=== PATIENT | male | born 1945 | race Caucasian/White ===

== ENCOUNTER 2024-03-22 07:13 | Day surgery (SDC) | payer MEDICARE, SELFPAY ==
[2024-03-22] VITALS (9 sets, daily range): BP systolic 111–167; BP diastolic 76–98; BMI 28.7
[2024-03-22 07:40] LABS: Hematocrit 44.3 % (39.0-52.0); Hemoglobin 14.5 g/dL (13.0-18.0); Mean Corp Hgb Conc. 32.7 g/dL (33.0-37.0); Mean Corpuscular Hgb 30.7 pg (27.0-31.0); Mean Corpuscular Volume 93.7 fL (80.0-94.0); Mean Platelet Volume 11.9 fL (7.4-10.4); Platelet Count 163 10^3/uL (130-400); Red Blood Cell Count 4.73 10^6/uL (4.70-6.10); Red Cell Dist. Width 12.9 % (11.5-14.5)
[2024-03-22 07:51] LABS: ALT (SGPT) 29 U/L (0-50); AST (SGOT) 43 U/L (17-59); Albumin 4.1 g/dl (3.5-5.0); Alkaline Phosphatase 74 U/L (38-126); Blood Urea Nitrogen 19 mg/dl (9-20); Calcium 9.4 mg/dl (8.4-10.2); Carbon Dioxide 32 mmol/L (22-30); Chloride 105 mmol/L (98-107); Glucose 104 mg/dl (70-99); Potassium 4.8 mmol/L (3.5-5.1); Sodium 145 mmol/L (135-145); Total Bilirubin 0.9 mg/dl (0.2-1.3); Total Protein 6.4 g/dl (6.3-8.2); eGFR > 60.00
--- NOTE | 2024-03-22 10:54 | ITS.CL.ANGIO ---
Chief Development Officer - Angioplasty
Angioplasty
Procedure Report:
CARDIAC CATHETERIZATION REPORT
Date of Procedure: 03/22/2024
Referring: Letha Schneider M.D.
Indication: Worsening shortness of breath, abnormal stress test.
PROCEDURE:
1. Right heart catheterization.
2. Left heart catheterization.
3. Coronary angiography.
4. Successful IFR of the proximal/mid LAD.
5. Successful IVUS guided PCI of the proximal/mid LAD.
ACCESS:
6 Kenyan right radial artery.
5 Kenyan right antecubital vein.
CATHETERS:
1. 5 Kenyan balloon wedge.
2. 5 Kenyan JL 3.5.
3. 5 Kenyan JR4.
4. 6 Kenyan EBU 3.5 guiding catheter.
HEMODYNAMIC DATA
Weight (kg): 96.0
AO (s/d/x mmHg): 148/74/104
LV (s/x mmHg): 150/17
PCWP (a/v/x mmHg): Not obtained due to insufficient catheter length.
PA (s/d/x mmHg): 54/30/38
RV (s/x mmHg): 54/15
RA (a/v/x mmHg): 20/18/15
SVC SvO2 (%): 61.8
PA SvO2 (%): 67.9
SaO2 (%): 94.7
Hbg (g/dL): 14.2
CO (L/min): 4.73
CI (L/min/m2): 2.19
TPG (mmHg): 21
PVR (Dolan Units): 4.44
SVR (dynes*seconds*cm^-5): 1505
AVO2 Diff (Volume %): 5.18
AV gradient (x, mmHg): None.
AV area (cm2): Normal.
LEFT VENTRICULOGRAPHY: Not performed.
CORONARY ANGIOGRAPHY
Dominance: Right.
Left Main: Normal size, bifurcating vessel. There is no coronary artery disease.
LAD: Normal size vessel giving rise to 2 significant diagonals. There is a calcified, 50-60% lesion in the mid vessel, and the segment spanning the origins of D1 and D2.
Ramus: Congenitally absent.
Circumflex: Normal size, nondominant vessel giving rise to 1 significant marginal. There is a 40% lesion in the proximal third of OM1.
RCA: Normal size, dominant vessel. The artery is chronically totally occluded in its midsection. The RPDA and Posterolateral arcade are supplied by collaterals from the LAD and circumflex systems.
INTERVENTIONS
1. Successful IFR of the 50-60% mid LAD lesion, demonstrating occlusive disease (IFR = 0.88).
2. Successful IVUS guided PCI of the mid LAD lesion (Xience Skypoint 3.5 x 23 CHANDLER, postdilated with a 3.5 NC balloon throughout and 3.75 NC balloon in the proximal margin) with reduction in stenosis to 0%, maintaining JACQUELYN-3 flow.
Narrative:
Dr. Hawkins was present throughout the entirety of the case and assisted me with various diagnostic portions of the procedure.
The decision was made to perform physiologic testing. The diagnostic catheter was removed over a wire and exchanged for a(n) 6 Kenyan EBU 3.5 guiding catheter. The guiding catheter was advanced into the ascending aorta and seated in the left main
coronary artery. Additional heparin was given to obtain an ACT greater than 250 seconds. An iFR wire was zeroed outside of the body, then inserted into the guiding sheath. The wire was advanced and the transducer was normalized just outside of the
guiding catheter tip. The wire was advanced into the distal LAD, beyond the 50-60% mid LAD lesion. Three iFR measurements were taken. The lesion was determined to be occlusive (0.88).
The decision was made to proceed with percutaneous coronary intervention. Additional heparin was given and a Power Turn Flex wire was advanced into the distal LAD. The occlusive, densely calcified 50-60% mid LAD lesion was predilated with a 2.0 x 12
semi-compliant balloon to 12 ana maria. The semi-compliant balloon was removed and a Xience Skypoint 3.5 x 23 drug-eluting stent was advanced. The stent was deployed at 12 atmospheres. The stent balloon was removed. A 3.5 x 20 noncompliant balloon was
advanced into the stent and the stent was postdilated to 14 atmospheres. Angiography showed good stent expansion of the distal stent with some underexpansion in the proximal margin. The decision was made to post dilate the proximal margin of the
stent more aggressively. A 3.75 x 12 NC balloon was advanced. The proximal margin of the stent was postdilated to 18 ana maria, at which point the lesion yielded and a full balloon expansion was observed. The noncompliant balloon was withdrawn.
The decision was made to perform intracoronary imaging. An IVUS catheter was advanced through the guiding catheter and into the ostium of the artery. Ring down was performed once the imaging crystal was no longer inside of the guiding catheter. The
IVUS catheter was advanced into the mid LAD, beyond the stent. Intravascular ultrasound was performed in a retrograde fashion using a slow pullback. Intracoronary imaging demonstrated good stent apposition and expansion throughout the entire stented
segment. There was no evidence of dissection or vessel compromise.
The IVUS catheter was withdrawn. Angiography was performed in orthogonal views, confirming good stent expansion and an excellent angiographic result. The coronary wire was withdrawn and the guide was disengaged from the artery. The catheter was
removed over a standard J-wire.
Closure Device: Vascular band for the right radial artery, manual pressure for the right antecubital vein.
Radiation dose (mGy): 664.74
DAP (cm2.Gy): 57.8943
Fluoroscopy time (minutes): 15.5
Sedation time (minutes): 41
CONCLUSIONS:
1. 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
the mid LAD, in this segment between the origins of D1 and D2 (IFR = 0.88) status post successful IVUS guided PCI (Xience Skypoint 3.5 x 23 CHANDLER, postdilated with a 3.5 NC balloon throughout and a 3.75 NC balloon in the proximal margin) with
reduction in stenosis to 0%, maintaining JACQUELYN-3 flow.
2. Mildly elevated filling pressures (LVEDP = 17 mmHg at 96.0 kg).
3. 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
RECOMMENDATIONS:
1. Expectant management after cardiac catheterization via right radial/right antecubital approach.
2. Limited weight bearing on the right wrist for one week.
3. Dual antiplatelet therapy with aspirin and clopidogrel for at least 12 months, followed by aspirin indefinitely.
4. Aggressive secondary prevention including high-dose, high potency statin.
5. Guideline directed medical therapy as hemodynamics will allow.
6. Follow-up with cardiology as well as pulmonology given his COPD and pulmonary hypertension.
7. Referral to cardiac rehab.
Copy to: Letha Schneider M.D., CATALINA Knutson
Isaias Florence DO, FACC, FACP
[2024-03-22 12:10] LABS: ACT-LR - POC > 397 Seconds (116-155)
--- NOTE | 2024-03-22 16:13 | W.PN.UPDATE ---
Update Note
Progress Note Update
Pt seen post LAD PCI CHANDLER. Radial cath site without ht, trace bleeding but successfully managed with manual compression. Post EKG NSR 70s, no acute changes. Pt understands importance of uninterrupted DAPT w/asa, plavix. Cardiac rehab consulted.
Followup at [facility] arranged. Home later today if cath site/tele remain stable.
== END 2024-03-22 15:46 | disposition home or self-care (01) ==
LOC: CATH 07:13
PROVIDERS: ATTENDING PHYSICIAN Internal Medicine Cardiovascular Disease; FAMILY PHYSICIAN Nurse Practitioner Family; OTHER PHYSICIAN Internal Medicine Cardiovascular Disease
DX: I25.10 Atherosclerotic heart disease of native coronary artery without angina pectoris (principal); R94.39 Abnormal result of other cardiovascular function study; R06.02 Shortness of breath; I25.82 Chronic total occlusion of coronary artery; I27.20 Pulmonary hypertension, unspecified; J44.9 Chronic obstructive pulmonary disease, unspecified
CPT/HCPCS: 92978; 80053; 85027; 85347; 93005; 93460; 93799; C1725; C1753; C1769; C1874; C1894; C9600; Q9967

== ENCOUNTER → 2024-10-07 10:31 | Outpatient (REF) | payer OTHER, SELFPAY | LOC: HWRAD 10:31 | PROVIDERS: ATTENDING PHYSICIAN Internal Medicine Critical Care Medicine | DX: J18.9 Pneumonia, unspecified organism (principal) | CPT/HCPCS: 71046 ==

== ENCOUNTER → 2024-12-28 06:55 | Outpatient (REF) | payer OTHER, SELFPAY ==
[2024-12-28 07:20] VITALS: BP 190/84; BP_SYST 72
[2024-12-28 07:45] VITALS: BP 161/80; BP_SYST 59
[2024-12-28 08:08] VITALS: BP 161/80
[2024-12-28 08:21] LABS: Body Fluid pH 7.45
[2024-12-28 08:24] LABS: Body Fluid Polymorphonuclear 1.1 %; Body Fluid WBC 3741 /CUMM
[2024-12-28 08:25] LABS: Body Fluid Mononuclear 98.9 %
[2024-12-28 08:32] LABS: Body Fluid Glucose 89 mg/dl; Body Fluid LDH 210 U/L; Body Fluid Protein 3.5 g/dl
[2024-12-28 09:06] LABS: Body Fluid Second Tech EM
== END ==
LOC: RADI 06:55
PROVIDERS: ATTENDING PHYSICIAN Internal Medicine Critical Care Medicine
DX: J90 Pleural effusion, not elsewhere classified (principal)
CPT/HCPCS: 88305; 32555; 71045; 82945; 83615; 83986; 84157; 87015; 87070; 87102; 87116; 87205; 87206; 88112; 88341; 88342; 89051

== ENCOUNTER 2025-06-17 13:33 | Inpatient (IN) | payer OTHER, SELFPAY ==
[2025-06-17] VITALS (7 sets, daily range): BP systolic 90–149; BP diastolic 68–81; BMI 26.9
[2025-06-17] MEDS: DECADRON 10 MG IV (11:41)
[2025-06-17] MEDS: DUONEB 3 ML INH ×3 (11:42→19:17)
[2025-06-17 11:53] LABS: Hematocrit 35.4 % (39.0-52.0); Hemoglobin 11.6 g/dL (13.0-18.0); Mean Corp Hgb Conc. 32.8 g/dL (33.0-37.0); Mean Corpuscular Volume 98.1 fL (80.0-94.0); Nucleated Red Blood Cells % 0 % (-); Platelet Count 176 10^3/uL (130-400); Red Cell Dist. Width 13.5 % (11.5-14.5)
--- NOTE | 2025-06-17 11:54 | ED.GENMED ---
History of Present Illness
General
Chief Complaint: Breathing Problem
Source: patient and spouse
Exam Limitations: none
Time Seen by Provider: 06/17/25 10:59
Nursing documentation reviewed up to this point in time: agreed with
History of Present Illness
History of Present Illness:
79-year-old male emphysema no longer smoking been short of breath for at least a month, worsened while on a trip to [place] on a cruise apparently exposed to folks with influenza has been coughing a lot no documented fever
He has had stents placed with no improvement of his respiratory symptoms, so what sounds like an empyema with thoracentesis with legionnaires
Past History
Past History
ED Past Medical History: COPD and Other (Legionnaire's pneumonia ); Negative Hypercholesterolemia or IDDM
ED Past Surgical History: Negative Cardiac
Social History
Tobacco: Former smoker
Alcohol: Occasional
Drug: None
Personal:
Living: with family
Employment: Employed
Family History
Family History: Negative Early CAD
Review of Systems
Review of Systems
All Other Systems: Not applicable
Constitutional: Reports fatigue; Denies fever
EENT: Reports no symptoms
Respiratory: Reports cough and trouble breathing
Cardiac: Reports no symptoms
ABD/GI: Reports no symptoms
: Reports no symptoms
Phy Exam
Physical Exam
Physical Exam:
Physical Exam
General: 79-year-old male nontoxic mild distress
Neck: No jaundice
Heart: s1/s2 regular rate and rhythm, no murmur. equal radial pulses.
Lungs: Crackles right greater than left with faint wheeze
Abdomen: normal bowel sounds. not tender. no CVAT
Neuro: alert and oriented. no focal neurological deficits
Skin: no rash
Psychiatric: well kept. interactive and cooperative
Extremities: Nonpitting edema some venous stasis change
Scores
Heart Failure Risk
Heart Failure Risk Score: Yes
History of Stroke or TIA: No
History of intubation for respiratory distress: No
Heart rate on ED arrival >/= 110: No
SaO2 <90% on arrival on room air: No
HR >/=110 during 3min walk test (or too ill to perform test): Yes
ECG has acute ischemic changes: No
Urea >/=12mmol/L (BUN 33.6mg/dL): No
Serum CO2>/=35mmol/L: No
Troponin I or T elevated to OK Level (0.4mg/dL): No
NT-proBNP >/=5,000ng/L (5,000pg/ml): No
HF Risk Score: 2
Admission Status: MEDIUM RISK 9.2% Consider observation or discharge to home with homecare & f/u visit to PCP/Tipple Tender, or SNF for treatment
Course
Orders/Labs/Results
Orders:
Orders
06/17/25 11:28
Cardiac Monitoring- Treatment ONCE
IV Insert/Care/Rem.- Treatment PRN
Dexamethasone Sod Phosphate [Decadron] 10 mg IV NOW STA
Ipratropium/Albuterol Sulfate [Duoneb] 3 ml INH R NOW STA
06/17/25 11:29
Electrocardiogram (*1) Stat
Reason for Study: Other
Other Reason for Exam: pneumonia
EKG- Treatment ONCE
CR Chest - 2 Views Urgent
Comment:
Reason For Exam: soub cough
06/17/25 11:37
Comprehensive Metabolic Panel Urgent
06/17/25 11:38
Complete Blood Count/With Diff Urgent
NT-proBNP Urgent
Troponin I Urgent
06/17/25 12:58
COVID-19 Antigen Urgent
Source: Nasal Swab
Influenza A+B Rapid Molecular Urgent
LAKSHMI Source: Nasal Swab
Specimen Description:
06/17/25 13:18
Admit/Transfer Patient As Directed
Co-Sign Provider:
Level of Care: Inpatient admission
Assign to:: Telemetry
Physician / Group: cristobal
Diagnosis: right pleural effusion
Reason for Telemetry: Pulmonary Edema
Date to Stop Telemetry: 06/20/25
Time to Stop Telemetry: 11:00
Reason for Hospitalization: right pleural effusion
Expected length of stay greater than two midnights?: Yes
ELOS- Estimated Length of Stay in days: 2
I certify the patient meets the requirements for IP care: Yes
Code Status As Directed
Resuscitation Status: Full Code
PRN Pain Medication Management As Directed
May give lesser potent ordered pain med per pt: Yes
preference::
Protocol:: Medication orders for pain may be administered in a
manner that supports deferring to patient preference
when the pt is:
- Requesting an ordered lesser potent pain medication.
Least to most potent pain medications are defined
as: acetaminophen < NSAID < tramadol < opioids
(morphine, oxycodone, hydromorphone).
- Requesting a lesser dose of the same medication IF
ORDERED.
- Requesting a less intrusive route of administration
if both routes are prescribed by the provider (PO <
IV).
06/17/25 13:25
PRN Pain Medication Management As Directed
May give lesser potent ordered pain med per pt: Yes
preference::
Protocol:: Medication orders for pain may be administered in a
manner that supports deferring to patient preference
when the pt is:
- Requesting an ordered lesser potent pain medication.
Least to most potent pain medications are defined
as: acetaminophen < NSAID < tramadol < opioids
(morphine, oxycodone, hydromorphone).
- Requesting a lesser dose of the same medication IF
ORDERED.
- Requesting a less intrusive route of administration
if both routes are prescribed by the provider (PO <
IV).
06/17/25 13:26
Procalcitonin Routine
If negative, will antibiotics be d/c'd or not started: Yes
Does the patient have renal or hepatic impairment?: No
Any recent (w/in 48 hrs) physiologic stress (CPR, rhabdo): No
Legionella Urinary Antigen Urgent
LAKSHMI Source: Urine
Specimen Description:
Strep pneumoniae Antigen Urgent
LAKSHMI Source: Urine
Specimen Description:
06/17/25 13:27
Furosemide [Lasix] 40 mg IV NOW STA
06/20/25 11:00
DC Protocol for Telemetry ONCE
Abnormal Lab Results
06/17/25 06/17/25
11:37 11:38
WBC 4.4 L 10^3/uL
(4.8-10.8)
RBC 3.61 L 10^6/uL
(4.70-6.10)
Hgb 11.6 L g/dL
(13.0-18.0)
Hct 35.4 L %
(39.0-52.0)
MCV 98.1 H fL
(80.0-94.0)
MCH 32.1 H pg
(27.0-31.0)
MCHC 32.8 L g/dL
(33.0-37.0)
MPV 11.1 H fL
(7.4-10.4)
Absolute Lymphs (auto) 0.8 L 10^3/uL
(1.2-3.4)
Lymphocytes % 17.6 L %
(20.5-51.1)
Monocytes % 10.1 H %
(1.7-9.3)
BUN 21 H mg/dl
(9-20)
Troponin I 0.038 H* ng/ml
Total Protein 6.2 L g/dl
(6.3-8.2)
06/17/25 11:38
06/17/25 11:37
Vital Signs
Initial and Last Documented VS:
Initial Vital Signs
Temp Pulse Resp BP Pulse Ox
98.0 F 70 20 144/74 96
06/17/25 10:36 06/17/25 10:36 06/17/25 10:36 06/17/25 10:36 06/17/25 10:36
Last Documented Vital Signs
Temp Pulse Resp BP Pulse Ox
98.0 F 70 20 144/74 100
06/17/25 10:36 06/17/25 10:36 06/17/25 10:36 06/17/25 10:36 06/17/25 12:15
MDM/Problems Addressed
Differential Diagnosis Includes:
COPD bronchitis heart failure pneumonia pleural effusions less likely PE or ACS
MDM/Problems Addressed:
Shortness of breath
Chronic conditions affecting care: COPD
Acute Exacerbation and/or Progression of Chronic Illness: COPD
*Radiology
Radiology exam reviewed: preliminary read by ED provider and radiology read reviewed
*Pulse Oximetry
SaO2: 96
Oxygen Mode of Delivery: Room air
Patient hypoxic: no
*EKG
Interpreted by ED Provider?: Yes
Interpretation: normal
Heart Rate: 78
Rate: normal
Rhythm: sinus
Ischemia: non-specific ST changes
*Sample Processor Interpretation
Rate: normal
Interpretation: normal
Heart Rate: 78
Rhythm: sinus
*Critical Care Note
Total Time (30-74mins, 75-104mins- exclusive of procedures): Not Applicable
Update Note
Update Note:
1 PM update labs noted chest x-ray
Patient proBNP elevated states he had an echo the past year or so was on diuretic because renal failure renal insufficiency not on chronic diuretics, has been exposed to people with the flu, this point is not clear if he needs diuretics,
thoracentesis, antibiotics or combination will admit, consult stock driver,
ED Attending Note
-
Portions of this chart may have been created with voice recognition software.� Occasional wrong word or��sound alike� substitutions may have occurred due to the inherent limitations of voice recognition software.
Discharge Plan
Departure
Patient Disposition: Admit
Date of Disposition: 06/17/25
Time of Disposition: 13:06
Admit to: Med/Surg
Presentation/result/management discussed w/ accepting MD/DO: Hospitalist
Patient with high blood pressure during this ER visit?: No
Covid-19: Not Applicable
Discharge Problem:
Pleural effusion
Prescriptions:
No Action
lisinopril [Zestril] 20 MG tablet
20 mg PO DAILY
aspirin 81 MG tablet,delayed release (DR/EC)
81 mg PO DAILY
PreserVision AREDS 4,296 mcg-226 mg-90 mg Capsule
1 cap PO BID
rosuvastatin 20 mg Tablet
20 mg PO QPM
acetaminophen [Tylenol Ex Str Arthritis Pain] 500 mg Tablet
500 mg PO Q4HPRN PRN (Reason: mild pain)
tamsulosin 0.4 mg Capsule
0.8 mg PO QPM
calcium carbonate [Tums 500] 500 mg calcium (1,250 mg) Tablet,Chewable
500 mg PO DAILY PRN (Reason: indigestion)
Sleep Aid (doxylamine) 25 mg Tablet
25 mg PO HS
albuterol sulfate [ProAir HFA] 90 mcg/actuation Hfa Aerosol Inhaler
1 puff INHALATION DAILY PRN (Reason: shortness of breath)
timolol maleate 0.5 % Drops
1 drp OPHTHALMIC (EYE) Q12H
cholecalciferol (vitamin D3) [Vitamin D3] 50 mcg (2,000 unit) Tablet
50 mcg PO DAILY
Breztri Aerosphere 160-9-4.8 mcg/actuation Hfa Aerosol Inhaler
2 inh INHALATION BID
Referrals:
Letha Schneider MD [Family Provider, Cardiology]
Interventions
Interventions:
*Risk Screen - Suicide Last Done: 06/17/25 10:36
*General Assessment Last Done: 06/17/25 11:15
*Neglect/Abuse Screening Last Done: 06/17/25 11:15
*ED COVID-19 Vaccine History Last Done: 06/17/25 11:15
*ED Influenza Vaccine History Last Done: 06/17/25 10:36
[facility] Fall Risk Assessment Tool Last Done: 06/17/25 11:15
ED- Cardiac Assessment Last Done: 06/17/25 11:15
ED- Pulmonary Assessment Last Done: 06/17/25 11:15
Discharge Date and Time
Print Language: ROMANIAN
[2025-06-17 12:06] LABS: ALT (SGPT) 18 U/L (0-50); AST (SGOT) 26 U/L (17-59); Albumin 3.6 g/dl (3.5-5.0); Alkaline Phosphatase 80 U/L (38-126); Blood Urea Nitrogen 21 mg/dl (9-20); Calcium 8.8 mg/dl (8.4-10.2); Carbon Dioxide 28 mmol/L (22-30); Chloride 102 mmol/L (98-107); Glucose 91 mg/dl (70-99); Potassium 4.2 mmol/L (3.5-5.1); Sodium 135 mmol/L (135-145); Total Protein 6.2 g/dl (6.3-8.2); eGFR 55.53
[2025-06-17 12:20] LABS: Troponin I 0.038 ng/ml
[2025-06-17] MEDS: LASIX 40 MG IV (13:27)
--- NOTE | 2025-06-17 13:34 | HPS.HSE ---
Family Physician
-
Family Physician: Letha Gallo MD
Chief Complaint
-
shortness of breath
History of Present Illness
79-year-old male past medical history of prior right pleural effusion status post drainage in October 2024, COPD, legionnaires pneumonia in 2007, hypertension, CAD status post stent, BPH, presenting for shortness of breath with exertion ongoing for at
least a month. Denies any chest pain.
He developed dry cough 3 days ago. He recently arrived on a trip from [place] during which multiple members in his libertarian tested positive for flu. Patient himself denies any sore throat, fevers or chills or bodyaches.
Patient has been feeling unsteady for the past few months. When he stands up he initially feels unsteady but denies dizziness or lightheadedness or vertigo. He has been using a cane. He denies any focal weakness, numbness or tingling, headache,
blurry vision.
He is a former smoker. He drinks 2-3 drinks per day of alcohol.
Medical History
Past Medical History
Past Medical History: Reports Other (prior right pleural effusion status post drainage in October 2024, COPD, legionnaires pneumonia in 2007, hypertension, CAD status post stent, BPH)
Past Surgical History: Reports None
Social History
Tobacco: Former Smoker
Alcohol: Daily
Drug: None
Family History
Family History: Not pertinent
Allergies / Home Medications
Allergies reflects when Allergies were last updated in [employer].
Home Medications with original date entered in [employer]
Allergy/Medication List:
Allergies
Allergy/AdvReac Type Severity Reaction Status Date / Time
No Known Allergies Allergy Verified 06/17/25 10:36
Home Medications
lisinopril 20 mg tablet (Zestril) 20 mg PO DAILY bp 03/30/09
aspirin 81 mg tablet,delayed release 81 mg PO DAILY blood thinner 08/31/09
rosuvastatin 20 mg tablet 20 mg PO QPM 03/22/24
vitamins A,C,T-sfbn-nqqbpp 4,296 mcg-226 mg-90 mg capsule (PreserVision AREDS) 1 cap PO BID dry eyes 03/22/24
acetaminophen 500 mg tablet 500 mg PO Q4HPRN PRN mild pain 06/17/25
albuterol sulfate 90 mcg/actuation aerosol inhaler 1 puff inhalation DAILY PRN shortness of breath 06/17/25
budesonide 160 mcg-glycopyr 9 mcg-formot 4.8 mcg/actuation HFA inhaler (Breztri Aerosphere) 2 inh inhalation BID 06/17/25
calcium carbonate 500 mg PO DAILY PRN indigestion 06/17/25
cholecalciferol (vitamin D3) 50 mcg (2,000 unit) tablet (Vitamin D3) 50 mcg PO DAILY 06/17/25
doxylamine succinate 25 mg tablet (Sleep Aid (doxylamine)) 25 mg PO HS 06/17/25
tamsulosin 0.4 mg capsule 0.8 mg PO QPM 06/17/25
timolol maleate 0.5 % eye drops 1 drp ophthalmic (eye) Q12H 06/17/25
Review of Systems
-
History Source: Patient
A 12 point ROS was completed and negative except as noted: Yes
Constitutional: Reports No Symptoms
EENT: Reports No Symptoms
Respiratory: Reports See HPI
Cardiac: Reports No Symptoms
Abdomen/GI: Reports No Symptoms
: Reports No Symptoms
Musculoskeletal: Reports No Symptoms
Skin: Reports No Symptoms
Neurological: Reports No Symptoms
Endocrine: Reports No Symptoms
Hematologic/Lymphatic: Reports No Symptoms
Psych: Reports No Symptoms
Physical Exam
Vital Signs
Vital Signs
Temp Pulse Resp BP Pulse Ox
98.0 F 70 20 144/74 100
06/17/25 10:36 06/17/25 10:36 06/17/25 10:36 06/17/25 10:36 06/17/25 12:15
Physical Exam
General: Well Developed, Well Nourished and No Apparent Distress
HEENT: NormoCephalic, Moist mucous membranes and Atraumatic
Respiratory: Clear
Cardiac: S1/S2 and Regular Rhythm; No Murmur or Rub
GI: Soft, Non Tender, Non Distended and Normal Bowel Sounds; No Organomegaly
Rectal: Deferred by Provider
Musculoskeletal: No Clubbing, No Cyanosis and No Edema
Skin: No Rash
Neuro: Nonfocal/grossly intact
Laboratory Results
-
06/17/25 11:38
06/17/25 11:37
Laboratory Results
Total Bilirubin 0.7 mg/dl (0.2-1.3) 06/17/25 11:37
AST 26 U/L (17-59) 06/17/25 11:37
ALT 18 U/L (0-50) 06/17/25 11:37
Alkaline Phosphatase 80 U/L (38-126) 06/17/25 11:37
Troponin I 0.038 ng/ml H* 06/17/25 11:38
Data Reviewed
-
Lab Data: Labs Reviewed by me
Old Records: Reviewed
Impression/Plan
-
IMPRESSION:
PLAN:
# Dyspnea secondary to recurrent right-sided pleural effusion concerning for acute CHF exacerbation versus possible pneumonia
-Given nebulizer and dexamethasone in ER but doubt COPD exacerbation
-Requiring 2 L oxygen
-Chest x-ray appears to show recurrent moderate right pleural effusion, small left pleural effusion, moderate subpleural airspace consolidation in the right lower lobe possibly atelectasis versus right lower lobe pneumonia, mild
interstitial/alveolar cardiogenic pulmonary edema
-Cardiac BNP 3500
- Previously underwent thoracentesis in December 2024
- IR consulted for thoracentesis
- Fluid studies to be sent
-Check strep antigen, Legionella
-Check Pro-Faizan
-Ceftriaxone/azithromycin
-Patient recently had echocardiogram 6 weeks ago at [facility] that was unremarkable
-Check I's and O's, daily weights
-40 IV Lasix once
- Pulmonary consulted
# Nonischemic myocardial injury
-Patient without chest pain
- Troponin 0.038
- EKG shows normal sinus rhythm
# New onset anemia/leukopenia
- Check iron studies, B12 and folate
# Ongoing unsteadiness
-Check orthostatics
- Check TSH, B12,
History of legionnaires pneumonia
COPD
- Continue albuterol
- Continue Breztri
CAD
- Continue aspirin, statin
Essential hypertension
- Continue lisinopril
BPH
- Continue tamsulosin
Full code
DVT prophylaxis�heparin
Regular diet
[2025-06-17 14:26] LABS: COVID-19 Antigen Negative (Negative)
[2025-06-17 14:39] LABS: Procalcitonin < 0.05 ng/ml (0.0-0.25)
--- NOTE | 2025-06-17 15:11 | CON.PUL ---
Consultation
Consultation Request
Date/Time Consultation Requested: 06/17/25-3 PM
Date/Time Consultation Performed: 06/17/25-3:30 PM
Requesting Provider: hospitalist
Performing Provider: Dr. Felix
Reason for Consultation: shortness of breath
Medical History
-
Chief Complaint: , shortness of breath
History of Present Illness:
77-year-old former smoking male with a history of right pleural effusion, status post drainage October 2024, COPD, legionnaire pneumonia, hypertension, CAD/stent, presented with increasing shortness of breath and dry cough-pulmonary consulted for
shortness of breath 06/17/25. Just returned from river cruise. Everyone was sick. He had inc sob, no cp no sputum and noted effusion sp drainage today alittle better. unsteady on feet asking for neuro eval. pos of flu.
Past Medical History
Past Medical History: None ( COPD. Former smoker. Right pleural effusion/thoracentesis October 2024. Legionnaire pneumonia. 2008. Hypertension. CAD/stent. BPH.)
Social History
Tobacco: Former Smoker
Alcohol: Daily
Drug: None
Personal:
Living: With Family
Occupational Exposures: No known asbestos exposure
Environmental Exposures: . No known tuberculosis exposure
Family History
Family History: Reviewed & Not Pertinent
Allergies / Home Medications
Allergies
Allergy/AdvReac Type Severity Reaction Status Date / Time
No Known Allergies Allergy Verified 06/17/25 10:36
Home Medications
�Medication �Instructions �Recorded �Confirmed �Last Taken �Type
lisinopril 20 mg tablet (Zestril) 20 mg PO DAILY bp 03/30/09 06/17/25 06/17/25 History
aspirin 81 mg tablet,delayed 81 mg PO DAILY blood thinner 08/31/09 06/17/25 06/17/25 History
release
rosuvastatin 20 mg tablet 20 mg PO QPM 03/22/24 06/17/25 06/16/25 History
vitamins A,C,Z-vjaj-iucmul 4,296 1 cap PO BID dry eyes 03/22/24 06/17/25 06/17/25 History
mcg-226 mg-90 mg capsule
(PreserVision AREDS)
acetaminophen 500 mg tablet 500 mg PO Q4HPRN PRN mild pain 06/17/25 06/17/25 06/16/25 History
albuterol sulfate 90 mcg/actuation 1 puff inhalation DAILY PRN 06/17/25 06/17/25 Unknown History
aerosol inhaler shortness of breath
budesonide 160 mcg-glycopyr 9 2 inh inhalation BID 06/17/25 06/17/25 06/17/25 History
mcg-formot 4.8 mcg/actuation HFA
inhaler (Breztri Aerosphere)
calcium carbonate 500 mg PO DAILY PRN indigestion 06/17/25 06/17/25 Unknown History
cholecalciferol (vitamin D3) 50 50 mcg PO DAILY 06/17/25 06/17/25 06/16/25 History
mcg (2,000 unit) tablet (Vitamin
D3)
doxylamine succinate 25 mg tablet 25 mg PO HS 06/17/25 06/17/25 06/16/25 History
(Sleep Aid (doxylamine))
tamsulosin 0.4 mg capsule 0.8 mg PO QPM 06/17/25 06/17/25 06/15/25 History
timolol maleate 0.5 % eye drops 1 drp ophthalmic (eye) Q12H 06/17/25 06/17/25 06/17/25 History
Review of Systems
-
Unable to Obtain full review of systems at this time due to: Other (Her HPI)
Vitals / Labs / Diagnostic Testing
Vital Signs
Temp Pulse Resp BP Pulse Ox
98.0 F 90 16 128/81 97
06/17/25 14:55 06/17/25 14:55 06/17/25 14:55 06/17/25 14:55 06/17/25 14:55
Lab Data
06/17/25 11:38
06/17/25 11:37
Microbiology
06/17/25 13:37 Nasal Swab Influenza Types A & B (REUBEN) - Final
Influenza A Positive, NAAT
Diagnostic Testing:
Physical Exam
-
Exam:
HEENT atraumatic normocephalic and anicteric. Heart was regular without murmur. Chest was clear without wheezes or crackles. Integument without rashes or icterus. Neurologic exam without weakness or numbness. Abdomen soft and nondistended.
The patient had no JVD, cyanosis, clubbing or edema.
Assessment
-
77-year-old former smoking male with a history of right pleural effusion, status post drainage October 2024, COPD, legionnaire pneumonia, hypertension, CAD/stent, presented with increasing shortness of breath and dry cough-pulmonary consulted for
shortness of breath 06/17/25.
Recurrent right pleural effusion.
Recent thoracentesis 12/2024
Thoracentesis 06/17/25
Pneumonia..
Influenza A- had vaccine this year
Mild CHF--preserved EF
Vkvxso-Aglmpzufvl-rvlymoyvnv 11.8
Leukopenia-WBC 4.4
Conditions present prior to admission:
COPD. .
Pulmonary nodule-9.3 mm left upper lobe-PET 12/2024-SUV 1.4-delayed 1.6
History of asbestos exposure
Former smoker.
Right pleural effusion/thoracentesis October 2024-suspected parapneumonic, cytology, negative
Legionnaire pneumonia 2007.
Hypertensi 1.4-delayed 1.69
BPH
Plan
Progressive respiratory decompensation, likely related to fluid reaccumulation, right greater than left pleural fluid.
Supplement oxygen as needed.
Inhalers-patient maintained on Breztri or Trelegy 100 -Hospital equipment would be fine.
Nebulizers as needed..
Decadron.
Aspiration precautions.
Incentive spirometry.
Diagnostic and therapeutic thoracentesis 06/17/25-pending
Diuresis as tolerated.
Monitor intake/output, weight, lower extremity edema and renal function.
Place electrolytes as needed.
Check cultures.
Empiric antibiotics.- Azithro and cetriaxone
Infulenza A pos
Isolation
Tamiflu
Follow radiographically.
Monitor leukopenia.
Monitor hemoglobin.
Transfuse if needed.
Recent Echo at [facility] reportedly looked 'good' - asked to get results
Asking for neuro eval - 'unsteady on feet'
DVT prophylaxis.
Nutrition
Early mobilization
Rev with RN and at the bedside
Patient last saw Dr. Engle 01/05/25 and canceled 06/17/25 as he was in the hospital
Studies:
Chest x-ray 06/17/25-moderate right and small left pleural effusion, moderate subpleural airspace consolidation right lower lobe, mild interstitial alveolar coverage extremity edema
CT chest 09/14/2024: Reviewed from CD-performed at [facility], Kana Garcia 10/07/2024 10:30:24 AM EDT >demonstratedmoderate centrilobular emphysema, upper lobe predominant.right lower lobe consolidation, with associated mild to
moderate pleural effusion. Mild left lower lobe bronchiolitis.Left upper lobe 7-8mm jay jay-fissural spiculated note. official report states that it is a slightly increased from 2023 from 6 mm.there is no mediastinal lymph nodes present and there is no
pericardial effusion..
PET/CT 12/29/2024, reviewed Kana Garcia 01/05/2025 12:25:28 PM EDT >1. 9.3 mm solid pulmonary nodule in the posterior apical segment of the left upper lobedemonstrating mild FDG uptake. Diagnostic possibilities are (1) a small infectious or
inflammatorynodule or (2) low-grade lung cancer.2. Mild bilateral upper lobe emphysema.3. Small right and minimal left pleural effusions.4. Mild amount of subpleural airspace opacity in the basilar right lower lobe (probably residualpneumonia or
inflammatory disease).5. Chronic urinary bladder outlet obstruction with severe urinary bladder wall thickening andmultiple large urinary bladder diverticula.
Pulmonary function testing ( 05/06/2024� ):FEV1: 1.71 L- 55%FVC:4.27 L at 99%FEV1/FVC ratio:40%T.84 L-92%RV:2.64 L-91%ERV:RV/TLC ratio:39%DLCO: 10.93-41%DLCO/VA: 56%
Echocardiogram 03/30/09-EF 55%, mild mitral regurgitation.
Cardiac catheterization 03/22/24-total occlusion mid RCA, successful PCI, mildly elevated filling pressures
Data Reviewed
-
PFT: Report reviewed by me
EKG: Report reviewed by me
Radiology: Image personally visualized and interpreted and Report reviewed by me
CT Scan: Report reviewed by me
Medical Tests (Nuc Med, Echo etc): Report reviewed by me
Labs: Labs reviewed by me
Old Records: Reviewed
Total Time Spent with Patient (in minutes): 65
--- NOTE | 2025-06-17 15:37 | EDCM ---
Reviewed chart and met with pt's bedside in ED. Pt currently in IR having pleural effusion drained.
Lives with his in 4th floor apartment with elevator access.
Independent in ADLs, personal care and ambulation at baseline. Has been using [facility] for past few weeks. No other DME.
Pt just returned from 12 day vacation last night, several people also tested positive for flu.
Confirms prescription coverage.
No hx VN or SNF
PCP:Pt does not currently have PCP, actuarial analyst is Letha Gallo. We discussed the importance of having PCP, said he sees actuarial analyst frequently so they thought he did not need a PCP anymore.
Pharmacy: [facility] [address]
Discharge disposition pending ongoing medical evaluation, CM will continue to follow for all discharge planning needs
[2025-06-17 16:32] LABS: Body Fluid Second Tech DW
[2025-06-17] MEDS: FLOMAX 0.8 MG PO (17:06)
[2025-06-17] MEDS: CRESTOR 20 MG PO (17:06)
[2025-06-17] MEDS: ZITHROMAX INFUSION 250 IV (17:07)
[2025-06-17] MEDS: STERILE WATER FOR INJECTION 10 ML IV (17:07)
[2025-06-17] MEDS: ROCEPHIN 1000 MG IV (17:07)
--- NOTE | 2025-06-17 17:33 | PTCARENOTE ---
patient arrived from IR via stretcher. Ambulated x 1 assist with cane from stretcher to bed--gait unsteady. Per , unsteady gait is a new finding since around one month ago-- is requesting patient be seen by neurology. Standing scale weight
obtained. VSS, on 2 L NC. Expiratory wheezes and anterior coarse breath sounds assessed upon auscultation. NSR on tele. Patient oriented to room. Patient educated on importance of utilizing his call crocker, to prevent falls, prior to exiting his
bed--patient agreeable. All patient needs met. Call crocker and personal belongings within reach.
[2025-06-17 17:37] LABS: Iron 42 ug/dl (49-181); LDH 177 U/L (120-246); Total Protein 6.4 g/dl (6.3-8.2)
[2025-06-17 17:46] LABS: Total Iron Binding Capacity 192 ug/dl (261-462)
[2025-06-17 18:11] LABS: Ferritin 585.0 ng/ml (17.9-464.0)
[2025-06-17 18:42] LABS: Folate 11.8 ng/ml (2.76-20); Vitamin B12 246 pg/ml (239-931)
[2025-06-17] MEDS: SYMBICORT 160/4.5 MCG INHALER 2 PUFF INH (19:18)
[2025-06-17] MEDS: TAMIFLU 30 MG PO (19:46)
[2025-06-17] MEDS: TIMOPTIC 0.5% OPHTHALMIC SOLUTION 1 DROP OPHTH (19:47)
[2025-06-17] MEDS: HEPARIN 5000 UNITS SC (19:47)
[2025-06-17] MEDS: OCUVITE SOFTGEL 1 CAP PO (19:47)
[2025-06-17] MEDS: BENADRYL 25 MG PO (21:06)
[2025-06-18] VITALS (8 sets, daily range): BP systolic 121–151; BP diastolic 65–85; PULSE 81–97; O2SAT 95; BMI 27.0
[2025-06-18] MEDS: SPIRIVA RESPIMAT 2.5 MCG 2 PUFF INH (07:24)
[2025-06-18] MEDS: DUONEB 3 ML INH ×4 (07:24→19:15)
[2025-06-18] MEDS: SYMBICORT 160/4.5 MCG INHALER 2 PUFF INH ×2 (07:24→19:15)
[2025-06-18 08:14] LABS: Hematocrit 34.7 % (39.0-52.0); Hemoglobin 11.3 g/dL (13.0-18.0); Mean Corp Hgb Conc. 32.6 g/dL (33.0-37.0); Mean Corpuscular Volume 96.7 fL (80.0-94.0); Nucleated Red Blood Cells % 0 % (-); Platelet Count 185 10^3/uL (130-400); Red Cell Dist. Width 13.2 % (11.5-14.5)
[2025-06-18] MEDS: HEPARIN 5000 UNITS SC ×2 (08:28→19:27)
[2025-06-18] MEDS: ASPIR LOW (ENTERIC COATED) 81 MG PO (08:28)
[2025-06-18] MEDS: ZESTRIL 20 MG PO (08:28)
[2025-06-18] MEDS: OCUVITE SOFTGEL 1 CAP PO ×2 (08:28→19:26)
[2025-06-18] MEDS: TAMIFLU 30 MG PO (08:28)
[2025-06-18] MEDS: VITAMIN D3 (cholecalciferol) 50 MCG PO (08:28)
[2025-06-18] MEDS: TIMOPTIC 0.5% OPHTHALMIC SOLUTION 1 DROP OPHTH ×2 (08:29→19:27)
[2025-06-18 08:35] LABS: Troponin I 0.017 ng/ml
[2025-06-18 08:41] LABS: ALT (SGPT) 17 U/L (0-50); AST (SGOT) 21 U/L (17-59); Albumin 3.4 g/dl (3.5-5.0); Alkaline Phosphatase 75 U/L (38-126); Blood Urea Nitrogen 23 mg/dl (9-20); Calcium 8.8 mg/dl (8.4-10.2); Carbon Dioxide 26 mmol/L (22-30); Chloride 104 mmol/L (98-107); Estimated Creatinine Clearance 65 ml/min; Glucose 94 mg/dl (70-99); Potassium 4.3 mmol/L (3.5-5.1); Sodium 136 mmol/L (135-145); Total Protein 6.0 g/dl (6.3-8.2); eGFR > 60.00
--- NOTE | 2025-06-18 09:53 | W.PN.HOSP.TC ---
Today's Communication/Plan
-
Discharge with prescription to complete cefdinir, Tamiflu, prednisone and azithromycin course
Assessment / Plan
Assessment / Plan
Impression:
79-year-old male with past medical history of right pleural effusion status post drainage in October 2024, COPD, hypertension, CAD status post stent presented to the ED with shortness of breath with exertion over the last month. In the last 3 days he
developed a dry cough. He was noted to be influenza A positive in the ED and chest x-ray revealed recurrent moderate right pleural effusion, small left pleural effusion and moderate subpleural airspace consolidation of the right lower lobe possibly
atelectasis versus right lower lobe pneumonia. He was started on Tamiflu, given IV steroids and azithromycin for possible COPD exacerbation and covered with ceftriaxone for possible superimposed pneumonia. He was also given 40 mg of IV Lasix for
concerns of CHF exacerbation. He was admitted for further workup. IR saw him and performed a right thoracentesis which drained 1100 cc of clear yellow pleural fluid. Fluid was mildly exudative. Cultures and pathology were sent.
Imaging:
Chest x-ray 06/17/2025:
IMPRESSION:
1. Moderate-sized right and small left pleural effusions which appear to have increased in size.
2. Moderate subpleural airspace consolidation in the right lower lobe. Diagnostic possibilities are (1) compressive atelectasis or (2) right lower lobe pneumonia (if there are signs/symptoms of pulmonary infection).
3. Mild interstitial and alveolar cardiogenic pulmonary edema.
4. Mild cardiomegaly.
Plan:
Dyspnea secondary to influenza A with possible COPD exacerbation versus pneumonia versus CHF exacerbation
Right-sided pleural effusion
-- Chest x-ray per above
-- Cardiac BNP 3500 - we do not have records but per patient he did have a recent echo which was 'normal'
-- He received 40 mg IV Lasix in the ED
-- Thoracentesis on 06/17/2025 yielded 1100 cc of exudative fluid - repeat chest x-ray revealed improvement
-- Received IV steroids in ED and neb treatments
-- Pulmonology consulted and they agreed with nebs and steroid burst
-- Tamiflu day 2/
-- Azithromycin day 2/
-- Prednisone 40mg PO day 2
-- Ceftriaxone for possible underlying pneumonia -> cefedinir 300 BID day 2
-- Procalcitonin is 0.05 making underlying pneumonia highly unlikely however given fluid is exudative, will err on the side of caution and treat with 5-day course as he already started antibiotics.
-- Low suspicion for CHF exacerbation given improvement after treatment - f/u with outpatient junior net developer
-- Discharge today with scripts to complete prednisone, azithromycin, Tamiflu and cefdinir course.
Nonischemic cardial injury
-- Troponin 0.03 on admission -> 0.017
-- Patient denies any chest pain, EKG nonischemic
Macrocytic anemia
-- B12 was 246 -start vitamin B-12 p.o.
-- Iron studies reveal anemia of chronic disease
-- Follow-up with outpatient PCP for further evaluation
Ongoing Unsteadiness
-- B12 deficiency likely contributing with possible underlying peripheral neuropathy
-- Orthostatics pending
-- TSH 0.53 within normal limits
#COPD - Continue albuterol and Breztri
#CAD s/p stent - Continue aspirin and statin
#Essential hypertension -continues lisinopril
#BPH -continue tamsulosin
Full code
DVT heparin
Anticipated Discharge: Today
Subjective/Interval History
-
Date of Service: June 18, 2025
Patient was receiving a breathing treatment when I wanted to talk to him. He did say he feels overall a lot better than yesterday after the thoracentesis.
Objective Data
-
Labs:
Laboratory Results
06/18/25
07:42
WBC 5.1
Hgb 11.3 L
Hct 34.7 L
Plt Count 185
Sodium 136
Potassium 4.3
Chloride 104
Carbon Dioxide 26
BUN 23 H
Creatinine 1.0
Glucose 94
Calcium 8.8
Total Bilirubin 0.6
AST 21
ALT 17
Alkaline Phosphatase 75
Vital Signs:
Vital Signs
Temp Pulse Resp BP Pulse Ox
97.9 F 60 18 141/78 95
06/18/25 07:05 06/18/25 08:28 06/18/25 07:29 06/18/25 08:28 06/18/25 07:29
I&O
06/17/25 06/18/25 06/19/25
06:59 06:59 06:59
Intake Total 120 / 120
Output Total 850 / 850
Balance -730 / -730
Review of Systems
-
History Source: Patient
Respiratory: Reports No Symptoms
Cardiac: Reports No Symptoms
Abdomen/GI: Reports No Symptoms
Musculoskeletal: Reports No Symptoms
Skin: Reports No Symptoms
Neuro: Reports No Symptoms
Physical Exam
-
General: No Apparent Distress
HEENT: Normocephalic
Respiratory: Rhonchi
Cardiac: Regular Rhythm and S1/S2
GI: Soft, Nontender, Nondistended and Normal Bowel Sounds
Musculoskeletal: No Cyanosis and No Edema
Skin: Warm and Dry
Neuro: AO x 3
Psych: Calm
[2025-06-18] MEDS: VITAMIN B-12 1000 MCG PO (10:26)
[2025-06-18] MEDS: MUCINEX 600 MG PO ×2 (10:26→19:26)
[2025-06-18 11:26] LABS: TSH 0.53 uIU/ml (0.47-4.68)
[2025-06-18] MEDS: ZITHROMAX 500 MG PO (12:33)
[2025-06-18] MEDS: DELTASONE 40 MG PO (12:33)
[2025-06-18] MEDS: STERILE WATER FOR INJECTION IV (13:03)
--- NOTE | 2025-06-18 14:51 | W.PN.UPDATE ---
Update Note
Progress Note Update
Discussed case with resident.
HPI: 79-year-old male with past medical history of right pleural effusion status post drainage in October 2024, COPD, hypertension, CAD status post stent; presented with shortness of breath with exertion over the last month and a dry cough for about 3
days.
He was noted to be influenza A positive in the ED and chest x-ray revealed recurrent moderate right pleural effusion, small left pleural effusion and moderate subpleural airspace consolidation of the right lower lobe possibly atelectasis versus
right lower lobe pneumonia.
He was started on Tamiflu, given IV steroids and azithromycin for possible COPD exacerbation and covered with ceftriaxone for possible superimposed pneumonia.
He was also given 40 mg of IV Lasix for concerns of CHF exacerbation.
IR saw him and performed a right thoracentesis which drained 1100 cc of clear yellow pleural fluid. Fluid was mildly exudative. Cultures and pathology were sent.
Imaging:
Chest x-ray 06/17/2025:
1. Moderate-sized right and small left pleural effusions which appear to have increased in size.
2. Moderate subpleural airspace consolidation in the right lower lobe. Diagnostic possibilities are (1) compressive atelectasis or (2) right lower lobe pneumonia (if there are signs/symptoms of pulmonary infection).
3. Mild interstitial and alveolar cardiogenic pulmonary edema.
4. Mild cardiomegaly.
A/P:
# Dyspnea secondary to influenza A
# possible COPD exacerbation
# Possible community-acquired pneumonia
# Right-sided pleural effusion
Cont Tamiflu
Chest x-ray per above
Cardiac BNP 3500 - we do not have records but per patient he did have a recent echo which was 'normal'
He received 40 mg IV Lasix in the ED
s/p Thoracentesis on admission 06/17/2025, yielded 1100 cc clear yellow pleural fluid. Fluid analysis showed exudative pleural effusion- repeat chest x-ray revealed improvement
s/p IV steroid -> PO prednisone 40 mg
Procalcitonin negative at 0.05 making underlying pneumonia highly unlikely however given fluid is exudative, will err on the side of caution and treat with 5-day course of antibiotics as he already started antibiotics.
Empiric antibiotics Ceftriaxone and azithromycin -> can change to p.o. cefdinir and oral azithromycin to complete total 5 days course
# Nonischemic myocardial injury
Troponin 0.03 on admission -> 0.017
Patient denies any chest pain, EKG nonischemic
# Macrocytic anemia
B12 at 246- start PO vitamin B12 supplement.
Iron studies reveal anemia of chronic disease
# Ongoing unsteadiness, likely related to current active flu infection
B12 deficiency likely contributing
TSH 0.53 within normal limits
PT eval
# CAD s/p stent - Continue aspirin and statin
# Essential hypertension - continues lisinopril
# BPH - continue tamsulosin
Total time 51 minutes
--- NOTE | 2025-06-18 16:11 | W.PN.PUL3 ---
Today's Communication / Plan
-
Tamiflu with isolation
Prednisone with taper as he clinically improves
Empiric antibiotics given opacification in right lower lobe on CXR
DuoNebs
Symbicort + Spiriva � resume Breztri upon discharge
Pulmonary service will continue to follow along
Assessment
-
77-year-old former smoking male with a history of right pleural effusion, status post drainage October 2024, COPD, legionnaire pneumonia, hypertension, CAD/stent, presented with increasing shortness of breath and dry cough-pulmonary consulted for
shortness of breath 06/17/25.
Recurrent right pleural effusion.
Recent thoracentesis 12/2024
Thoracentesis 06/17/25
Pneumonia..
Influenza A- had vaccine this year
Mild CHF--preserved EF
Jdhvio-Rmljrznhup-toiunacxuk 11.8
Leukopenia-WBC 4.4
Conditions present prior to admission:
COPD. .
Pulmonary nodule-9.3 mm left upper lobe-PET 12/2024-SUV 1.4-delayed 1.6
History of asbestos exposure
Former smoker.
Right pleural effusion/thoracentesis October 2024-suspected parapneumonic, cytology, negative
Legionnaire pneumonia 2007.
Hypertensi 1.4-delayed 1.69
BPH
Plan
Progressive respiratory decompensation, likely related to fluid reaccumulation, right greater than left pleural fluid.
- He is now feeling much better after thoracentesis yesterday, which removed 1100 cc of clear yellow exudative (LDH + total protein) fluid
- Follow-up pleural fluid cultures (shows NGTD)
Supplement oxygen as needed.
Inhalers-patient maintained on Breztri or Trelegy 100 - currently on Symbicort 160 mcg + Spiriva Respimat
DuoNeb BID with prn nebulizers (not currently bronchospastic)
Continue with empiric antibiotics with cefdinir + Zithromax - plan for 5-7 days
Prednisone with taper as he clinically improves
Aspiration precautions.
Incentive spirometry.
Infulenza A pos
Isolation
Tamiflu
Follow radiographically.
Trend WBC
Monitor hemoglobin.
Transfuse if needed to keep Hb>7
Recent Echo at [facility] reportedly looked 'good' - asked to get results
Asking for neuro eval - 'unsteady on feet'
- CT head tomorrow AM
DVT prophylaxis.
Nutrition
Early mobilization
Patient last saw Dr. Engle 01/05/25 and canceled 06/17/25 as he was in the hospital; he will need outpatient follow-up s/p discharge
Pulmonary service will continue to follow along
Studies:
Chest x-ray 06/17/25-moderate right and small left pleural effusion, moderate subpleural airspace consolidation right lower lobe, mild interstitial alveolar coverage extremity edema
CT chest 09/14/2024: Reviewed from CD-performed at [facility], Kana Garcia 10/07/2024 10:30:24 AM EDT >demonstratedmoderate centrilobular emphysema, upper lobe predominant.right lower lobe consolidation, with associated mild to
moderate pleural effusion. Mild left lower lobe bronchiolitis.Left upper lobe 7-8mm jay jay-fissural spiculated note. official report states that it is a slightly increased from 2023 from 6 mm.there is no mediastinal lymph nodes present and there is no
pericardial effusion..
PET/CT 12/29/2024, reviewed Kana Garcia 01/05/2025 12:25:28 PM EDT >1. 9.3 mm solid pulmonary nodule in the posterior apical segment of the left upper lobedemonstrating mild FDG uptake. Diagnostic possibilities are (1) a small infectious or
inflammatorynodule or (2) low-grade lung cancer.2. Mild bilateral upper lobe emphysema.3. Small right and minimal left pleural effusions.4. Mild amount of subpleural airspace opacity in the basilar right lower lobe (probably residualpneumonia or
inflammatory disease).5. Chronic urinary bladder outlet obstruction with severe urinary bladder wall thickening andmultiple large urinary bladder diverticula.
Pulmonary function testing ( 05/06/2024� ):FEV1: 1.71 L- 55%FVC:4.27 L at 99%FEV1/FVC ratio:40%T.84 L-92%RV:2.64 L-91%ERV:RV/TLC ratio:39%DLCO: 10.93-41%DLCO/VA: 56%
Echocardiogram 03/30/09-EF 55%, mild mitral regurgitation.
Cardiac catheterization 03/22/24-total occlusion mid RCA, successful PCI, mildly elevated filling pressures
Patient was seen and evaluated on 06/18/2025. Total time spent today was 36 minutes for this encounter. Time includes reviewing laboratory test/imaging results, reviewing pertinent medical records, obtaining and reviewing medical history,
performing an appropriate exam, ordering medications, tests and procedures. Time also includes documentation of this encounter, coordinating patient care and communicating with other healthcare professionals. Total time does not include separately
billed tests performed on this date of service.
Subjective Data
-
Date of Service:
Date of Service: June 18, 2025
Chief Complaint: Pulmonary Follow Up
Subjective:
Patient seen at bedside this afternoon (late note entry). Currently on room air breathing comfortably. Denies SOB. Feels well overall. Eager to go home.
Review of Systems
General: Other (Negative unless mentioned above)
Objective Data
Data Reviewed
Vital Signs / I&O / Oxygen:
Vital Signs
Temp Pulse Resp BP Pulse Ox
97.2 F 67 16 126/70 95
06/18/25 11:00 06/18/25 11:24 06/18/25 11:24 06/18/25 11:00 06/18/25 11:24
Intake and Output
06/17/25 06/18/25 06/19/25
06:59 06:59 06:59
Intake Total 120 / 120
Output Total 850 / 850
Balance -730 / -730
SaO2 95
Nasal Cannula flow liters per 2
minute
Physical Exam
General: Respiratory Distress (negative), Comfortable, Chills (negative) and Sweats (negative)
HEENT: Normocephalic and Anicteric
Cardiovascular: S1-S2 and Peripheral Edema (negative)
Respiratory: Wheeze (negative), Crackles (Bibasilar), Rhonchi (negative) and Non-Labored Respirations
GI: Soft, Non Distended, Non Tender and Normal Bowel Sounds
Neurology: AO x 3 and Tremors (negative)
Skin: Warm, Dry, Cyanosis (negative) and Jaundice (negative)
Labs/Micro/Reports
Lab Data
06/18/25 07:42
06/18/25 07:42
Microbiology
06/18/25 06:29 Urine Legionella Urinary Antigen - Final
Negative for Legionella pneumophila Serogroup 1 antigen.
A negative result does not rule out the possiblity of
Legionella infection due to other serogroups or species of
Legionella. Clinical correlation is recommended.
06/18/25 06:29 Urine Streptococcus pneumoniae Antigen (M - Final
Negative for Streptococcus pneumoniae antigen.
A negative result does not exclude infection with
Streptococcus pneumoniae. Clinical correlation is
recommended.
06/17/25 15:11 Pleural Fluid Gram Stain - Preliminary
06/17/25 15:11 Pleural Fluid Fungal Culture - Preliminary
Culture in progress.
Positive cultures are reported as soon as detected.
Final report to follow in four to five weeks.
06/17/25 13:37 Nasal Swab Influenza Types A & B (REUBEN) - Final
Influenza A Positive, NAAT
[2025-06-18] MEDS: FLOMAX 0.8 MG PO (17:07)
[2025-06-18] MEDS: CRESTOR 20 MG PO (17:07)
[2025-06-18] MEDS: TAMIFLU 75 MG PO (19:26)
[2025-06-18] MEDS: OMNICEF 300 MG PO (19:26)
[2025-06-18] MEDS: BENADRYL 25 MG PO (21:20)
[2025-06-19 03:20] VITALS: BP 135/89
[2025-06-19 05:46] VITALS: BMI 27.1
[2025-06-19 07:15] VITALS: BP 156/84
--- NOTE | 2025-06-19 07:20 | CON.NEURO ---
Neuro Assessment/Plan
Assessment
#Ambulatory dysfunction
Mr. Cope describes a stepwise decline in his walking starting 2-3 months ago then a plateau then another decline about a month ago and another plateau. He describes difficulty initiating gait. He gait shows short shuffling steps. No other
evidence of PD. 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 He also has decreased vibratory sensation in a stocking glove distribution with
intact proprioception consistent with a sensory polyneuropathy, which can impact walking. He also has evidence of ataxia on FNF and HKS testing that is mild. He is a daily drinker, and this can also cause cerebellar degeneration and neuropathy as
well. This can also impact his walking, but shouldn't affect solely gait initiation. He is still working intermittently arguing against significant cognitive effects making NPH less likely. In summary, he has multifactorial causes (neuropathy,
ataxia, possible vascular PD) that can impact his gait with superimposed step hernandez declines. I recommend a head CT as an initial evaluation for cerebellar degeneration and possible large strokes. An MRI head w/o contrast would be helpful, but this
can be done as an outpatient. He will need [id number] for further evaluation of gait dysfunction. I also recommend HgbA1c level to assess for causes of neuropathy. Vitamin B12 was low normal. Started on supplementation per primary team. TSH
within normal limits. Other possibilities are orthostatic tremor, but this shouldn't be stepwise like this and idiopathic PD is unlikely due to no rest tremor or rigidity in the upper extremities.
Plan
- head CT to evaluate for possible stroke and cerebellar degeneration
- HgbA1c level
- outpatient [id number] within 12 weeks
Consultation
Order
Date of Consultation: 06/19/25
Requesting Provider: Dr. Guardado
Reason for Consult: ambulatory dysfunction
Subjective/Objective
Subjective Data
Date of Service: June 19, 2025
Mr. Cope is a fair historian. he provides history. His , Toya, was also present via speaker phone and provided history as well.
HPI: Mr. Cope is an 79 y.o. male w/ a PMH of right pleural effusion, COPD, Legionnaires pneumonia in 2007, HTN, CAD s/p stent, BPH who is admitted for shortness of breath and found to have a Influenza A and has had months of ambulatory
dysfunction for which neuro in consulted. His issues with ambulatory started about 2-3 months ago where he first noticed trouble initiating his walking. His walking plateaued and then a month ago, he noticed it got worse again and then again
plateaued. Denies focal weakness and numbness. He states that he get's up and then he feels shaky and then after a little while he can get walking. His upper body will lead his lower body to get moving. He started using a cane for stability. No
falls. After he walks he gets short of breath from his co-morbidities and has to sit down. He has been taking his aspirin daily. No back pain.
PMH: prior right pleural effusion status post drainage in October 2024, COPD, legionnaires pneumonia in 2007, hypertension, CAD status post stent, BPH
PSH: None
Allergies: NKDA
Meds:
lisinopril 20 mg tablet (Zestril) 20 mg PO DAILY bp 03/30/09
aspirin 81 mg tablet,delayed release 81 mg PO DAILY blood thinner 08/31/09
rosuvastatin 20 mg tablet 20 mg PO QPM 03/22/24
vitamins A,C,O-djyx-azllus 4,296 mcg-226 mg-90 mg capsule (PreserVision AREDS) 1 cap PO BID dry eyes 03/22/24
acetaminophen 500 mg tablet 500 mg PO Q4HPRN PRN mild pain 06/17/25
albuterol sulfate 90 mcg/actuation aerosol inhaler 1 puff inhalation DAILY PRN shortness of breath 06/17/25
budesonide 160 mcg-glycopyr 9 mcg-formot 4.8 mcg/actuation HFA inhaler (Breztri Aerosphere) 2 inh inhalation BID 06/17/25
calcium carbonate 500 mg PO DAILY PRN indigestion 06/17/25
cholecalciferol (vitamin D3) 50 mcg (2,000 unit) tablet (Vitamin D3) 50 mcg PO DAILY 06/17/25
doxylamine succinate 25 mg tablet (Sleep Aid (doxylamine)) 25 mg PO HS 06/17/25
tamsulosin 0.4 mg capsule 0.8 mg PO QPM 06/17/25
timolol maleate 0.5 % eye drops 1 drp ophthalmic (eye) Q12H 06/17/25
FH: No FH of PD or strokes
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 He still goes in to the office occasionally.
Objective Data
Vital Signs
Temp Pulse Resp BP Pulse Ox
36.4 C 61 18 135/89 96
06/19/25 03:20 06/19/25 03:20 06/19/25 03:20 06/19/25 03:20 06/19/25 03:20
Sodium 136 mmol/L (135-145) 06/18/25 07:42
Potassium 4.3 mmol/L (3.5-5.1) 06/18/25 07:42
BUN 23 mg/dl (9-20) H 06/18/25 07:42
Glucose 94 mg/dl (70-99) 06/18/25 07:42
Calcium 8.8 mg/dl (8.4-10.2) 06/18/25 07:42
Wgj-T-Eingejqtxsp Pept 3540 pg/ml 06/17/25 11:38
Vitamin B12 246 pg/ml (239-931) 06/17/25 16:58
Patient Allergies
No Known Allergies Allergy (Verified 06/17/25 10:36)
Physical Exam
-
General: Well Developed, Well Nourished and No Apparent Distress
HEENT: Normocephalic and Atraumatic
Respiratory: Clear to Auscultation
Cardiac: Regular Rhythm
GI: Normal Bowel Sounds
Skin: Unremarkable
Psych: Unremarkable
Extended Neurological Exam
Mood & Affect: Mood Unremarkable and Affect Unremarkable
Attention Span & Concentration: Awake, Alert, Interactive and No Difficulty with 2 Step Request
Memory: Unremarkable
Tremor: Hand Tremor Absent
Involuntary Movement: None
Speech: Quality Unremarkable, Quantity Unremarkable and Rate of Production Unremarkable
Cranial Nerve II: Left Eye: Pupillary Reactivity Unremarkable and Visual Hicks Intact
Cranial Nerve II: Right Eye: Pupillary Reactivity Unremarkable and Visual Hicks Intact
Cranial Nerves III, IV, : Extraocular Movement: Extraocular Movement Full in all Directions and No Ptosis
Cranial Nerve V: Facial Sensation: Intact to Light Touch
Cranial Nerve VII: Facial Symmetry: Normal Facial Symmetry
Cranial Nerve VIII: Hearing: Unremarkable Hearing to Normal Conversational Volume
Cranial Nerves IX, X: Palate Movement: Palate Elevation Symmetric
Cranial Nerve XI: Shoulder Shrug: Unremarkable
Cranial Nerve XII: Tongue Protusion: Midline
Muscle Strength, Overall: Full Throughout
Muscle Bulk & Tone: Bulk Unremarkable and Tone Unremarkable
Pronator Drift: No Drift in Upper Extremities
Deep Tendon Reflexes: Other (2+ in upper extremities and absent in lower extremities)
Vibration Sensation: Reduced Severely Distally (Present in upper extremities. Intact proprioception.)
Coordination: Other (Had mild ataxia on FNF bilaterally and also with HKS bilaterally and about symmetrically)
Gait & Station: Other (tremulous when he stood up. his body bent forward to get moving and took short shuffling steps.)
Medications
-
Active Medications
Generic Name Dose Route Start Last Admin
Trade Name Freq PRN Reason Stop Dose Admin
Acetaminophen 500 mg 06/17/25 15:51
Acetaminophen 500 Mg Tablet PO 07/15/25 15:50
Q4HPRN PRN
mild pain
Albuterol/Ipratropium 3 ml 06/17/25 16:00 06/18/25 19:15
Ipratropium 0.5/Albuterol 3 Mg (3 Ml Ampul) INH 3 ml
R QID JOSTIN Administration
Protocol
Aspirin 81 mg 06/18/25 08:00 06/18/25 08:28
Aspirin 81 Mg (Enteric Coated) Tablet PO 07/16/25 07:59 81 mg
DAILY JOSTIN Administration
Azithromycin 500 mg 06/18/25 13:00 06/18/25 12:33
Azithromycin 250 Mg Tablet PO 500 mg
DAILY JOSTIN Administration
Budesonide/Formoterol Fumarate 2 puff 06/17/25 20:00 06/18/25 19:15
Symbicort Inhaler 160/4.5 INH 07/15/25 19:59 2 puff
R BID JOSTIN Administration
Protocol
Calcium Carbonate 200 mg 06/17/25 16:05
Calcium Antacid 200 Mg (Calcium Carbonate 500 Mg) Chew Tablet PO 07/15/25 16:04
DAILYPRN PRN
indigestion
Cefdinir 300 mg 06/18/25 20:00 06/18/25 19:26
Cefdinir 300 Mg Capsule PO 300 mg
Q12 JOSTIN Administration
Cholecalciferol 50 mcg 06/18/25 08:00 06/18/25 08:28
Cholecalciferol (Vitamin D3) 50 Mcg Tablet (2,000 Units) PO 07/16/25 07:59 50 mcg
DAILY JOSTIN Administration
Cyanocobalamin (Vitamin B12) 1,000 mcg 06/18/25 09:15 06/18/25 10:26
Cyanocobalamin (Vitamin B-12) 500 Mcg Tablet PO 07/16/25 09:14 1,000 mcg
DAILY JOSTIN Administration
Diphenhydramine HCl 25 mg 06/17/25 22:00 06/18/25 21:20
Diphenhydramine 25 Mg Capsule PO 07/15/25 21:59 25 mg
HS JOSTIN Administration
Guaifenesin 600 mg 06/18/25 09:00 06/18/25 19:26
Guaifenesin 600 Mg Extended Release Tablet PO 07/16/25 08:59 600 mg
Q12 JOSTIN Administration
Heparin Sodium 5,000 units 06/17/25 20:00 06/18/25 19:27
Heparin 5,000 Units/Ml 1 Ml Vial SC 07/15/25 19:59 5,000 units
Q12 JOSTIN Administration
Lisinopril 20 mg 06/18/25 08:00 06/18/25 08:28
Lisinopril 20 Mg Tablet PO 07/16/25 07:59 20 mg
DAILY JOSTIN Administration
Oseltamivir Phosphate 75 mg 06/18/25 20:00 06/18/25 19:26
Oseltamivir (Tamiflu) 75 Mg Capsule PO 06/22/25 08:01 75 mg
BID JOSTIN Administration
Prednisone 40 mg 06/18/25 12:00 06/18/25 12:33
Prednisone 20 Mg Tablet PO 07/16/25 11:59 40 mg
DAILY JOSTIN Administration
Rosuvastatin Calcium 20 mg 06/17/25 18:00 06/18/25 17:07
Rosuvastatin (Crestor) 20 Mg Tablet PO 07/15/25 17:59 20 mg
QPM JOSTIN Administration
Sodium Chloride 0 flush 06/17/25 16:00
Sodium Chloride 0.9% (Flush) Syringe IV 07/15/25 15:59
PER PROTOCOL JOSTIN
Sterile Water 10 ml 06/17/25 16:00 06/18/25 13:03
Sterile Water For Injection 10 Ml Vial IV 07/15/25 15:59 Not Given
Q24H JOSTIN
Tamsulosin HCl 0.8 mg 06/17/25 18:00 06/18/25 17:07
Tamsulosin 0.4 Mg Capsule PO 07/15/25 17:59 0.8 mg
QPM JOSTIN Administration
Timolol Maleate 0 drop 06/17/25 20:00 06/18/25 19:27
Timolol 0.5% (Ophthalmic Solution) Bottle OPHTH 07/15/25 19:59 1 drop
Q12H JOSTIN Administration
Tiotropium [place] 2 puff 06/18/25 08:00 06/18/25 07:24
Tiotropium (Spiriva Respimat) 2.5 Mcg Inhaler INH 07/16/25 07:59 2 puff
R DAILY JOSTIN Administration
Vitamin C/Vitamin E 1 cap 06/17/25 20:00 06/18/25 19:26
Vit C/Vit E/Lutein/Min/Loda-3 (Ocuvite) Capsule PO 07/15/25 19:59 1 cap
BID JOSTIN Administration
Home Medications
�Medication �Instructions �Recorded
lisinopril 20 mg tablet (Zestril) 20 mg PO DAILY Blood Pressure 03/30/09
aspirin 81 mg tablet,delayed 81 mg PO DAILY blood thinner 08/31/09
release
rosuvastatin 20 mg tablet 20 mg PO QPM High Cholesterol 03/22/24
vitamins A,C,T-rprh-owvfrh 4,296 1 cap PO BID Supplement 03/22/24
mcg-226 mg-90 mg capsule
(PreserVision AREDS)
acetaminophen 500 mg tablet 500 mg PO Q4HPRN PRN mild pain 06/17/25
albuterol sulfate 90 mcg/actuation 1 puff inhalation DAILY PRN 06/17/25
aerosol inhaler shortness of breath
budesonide 160 mcg-glycopyr 9 2 inh inhalation BID 06/17/25
mcg-formot 4.8 mcg/actuation HFA Lung/Breathing Issues
inhaler (Breztri Aerosphere)
calcium carbonate 500 mg PO DAILY PRN indigestion 06/17/25
cholecalciferol (vitamin D3) 50 50 mcg PO DAILY Supplement 06/17/25
mcg (2,000 unit) tablet (Vitamin
D3)
doxylamine succinate 25 mg tablet 25 mg PO HS Sleep 06/17/25
(Sleep Aid (doxylamine))
tamsulosin 0.4 mg capsule 0.8 mg PO QPM Urinary Issue 06/17/25
timolol maleate 0.5 % eye drops 1 drp ophthalmic (eye) Q12H Eye 06/17/25
Condition
[2025-06-19] MEDS: ZITHROMAX 500 MG PO (07:37)
[2025-06-19] MEDS: ZESTRIL 20 MG PO (07:37)
[2025-06-19] MEDS: TAMIFLU 75 MG PO (07:38)
[2025-06-19] MEDS: ASPIR LOW (ENTERIC COATED) 81 MG PO (07:38)
[2025-06-19] MEDS: VITAMIN B-12 1000 MCG PO (07:38)
[2025-06-19] MEDS: VITAMIN D3 (cholecalciferol) 50 MCG PO (07:38)
[2025-06-19] MEDS: DELTASONE 40 MG PO (07:39)
[2025-06-19] MEDS: MUCINEX 600 MG PO (07:39)
[2025-06-19] MEDS: OCUVITE SOFTGEL 1 CAP PO (07:39)
[2025-06-19] MEDS: OMNICEF 300 MG PO (07:39)
[2025-06-19] MEDS: HEPARIN 5000 UNITS SC (07:40)
[2025-06-19] MEDS: TIMOPTIC 0.5% OPHTHALMIC SOLUTION 1 DROP OPHTH (07:41)
[2025-06-19] MEDS: SPIRIVA RESPIMAT 2.5 MCG 2 PUFF INH (07:56)
[2025-06-19] MEDS: SYMBICORT 160/4.5 MCG INHALER 2 PUFF INH (07:56)
[2025-06-19] MEDS: DUONEB 3 ML INH ×2 (07:56→12:17)
[2025-06-19 08:11] LABS: Hematocrit 33.9 % (39.0-52.0); Hemoglobin 11.0 g/dL (13.0-18.0); Mean Corp Hgb Conc. 32.4 g/dL (33.0-37.0); Mean Corpuscular Volume 97.7 fL (80.0-94.0); Platelet Count 197 10^3/uL (130-400); Red Cell Dist. Width 13.3 % (11.5-14.5)
[2025-06-19 08:29] VITALS: BP 139/83; BP 150/79; BP 158/85; PULSE 80; PULSE 86; PULSE 88
[2025-06-19 08:32] LABS: Blood Urea Nitrogen 25 mg/dl (9-20); Calcium 8.5 mg/dl (8.4-10.2); Carbon Dioxide 27 mmol/L (22-30); Chloride 105 mmol/L (98-107); Estimated Creatinine Clearance 54 ml/min; Glucose 85 mg/dl (70-99); Potassium 4.1 mmol/L (3.5-5.1); Sodium 136 mmol/L (135-145); eGFR > 60.00
--- NOTE | 2025-06-19 09:56 | W.PN.HOSP.TC ---
Today's Communication/Plan
-
Patient head CT pending
Discharged with antibiotics and prednisone if everything is normal.
Assessment / Plan
Assessment / Plan
Impression:
79-year-old male with past medical history of right pleural effusion status post drainage in October 2024, COPD, hypertension, CAD status post stent presented to the ED with shortness of breath with exertion over the last month. In the last 3 days he
developed a dry cough. He was noted to be influenza A positive in the ED and chest x-ray revealed recurrent moderate right pleural effusion, small left pleural effusion and moderate subpleural airspace consolidation of the right lower lobe possibly
atelectasis versus right lower lobe pneumonia. He was started on Tamiflu, given IV steroids and azithromycin for possible COPD exacerbation and covered with ceftriaxone for possible superimposed pneumonia. He was also given 40 mg of IV Lasix for
concerns of CHF exacerbation. He was admitted for further workup. IR saw him and performed a right thoracentesis which drained 1100 cc of clear yellow pleural fluid. Fluid was mildly exudative. Cultures and pathology were sent. Ceftriaxone was
switched to cefdinir. Patient requested neurology consult for unsteadiness on feet. Workup for peripheral neuropathy was done and he was noted to be to be B12 deficient. Neurology recommended a head CT.
Imaging:
Chest x-ray 06/17/2025:
IMPRESSION:
1. Moderate-sized right and small left pleural effusions which appear to have increased in size.
2. Moderate subpleural airspace consolidation in the right lower lobe. Diagnostic possibilities are (1) compressive atelectasis or (2) right lower lobe pneumonia (if there are signs/symptoms of pulmonary infection).
3. Mild interstitial and alveolar cardiogenic pulmonary edema.
4. Mild cardiomegaly.
Plan:
Dyspnea secondary to influenza A with possible COPD exacerbation versus pneumonia versus CHF exacerbation
Right-sided pleural effusion
-- Chest x-ray per above
-- Cardiac BNP 3500 - we do not have records but per patient he did have a recent echo which was 'normal'
-- He received 40 mg IV Lasix in the ED
-- Thoracentesis on 06/17/2025 yielded 1100 cc of exudative fluid - repeat chest x-ray revealed improvement
-- Received IV steroids in ED and neb treatments
-- Pulmonology consulted and they agreed with nebs and steroid burst
-- Tamiflu day 3
-- Azithromycin day 3
-- Prednisone 40mg PO day 09/08
-- Ceftriaxone for possible underlying pneumonia -> cefedinir 300 BID day 09/08
-- Procalcitonin is 0.05 making underlying pneumonia highly unlikely however given fluid is exudative, will err on the side of caution and treat with 5-day course as he already started antibiotics.
-- Low suspicion for CHF exacerbation given improvement after treatment - f/u with outpatient hardware test engineer
-- Discharge today with scripts to complete prednisone, azithromycin, Tamiflu and cefdinir course.
Nonischemic cardial injury
-- Troponin 0.03 on admission -> 0.017
-- Patient denies any chest pain, EKG nonischemic
Macrocytic anemia
-- B12 was 246 -start vitamin B-12 p.o.
-- Iron studies reveal anemia of chronic disease
-- Follow-up with outpatient PCP for further evaluation
Ongoing Unsteadiness
-- B12 deficiency likely contributing with possible underlying peripheral neuropathy
-- TSH 0.53 within normal limits, hga1c pending
-- Pt and family requested neurology consult yesterday - neurology consult placed
-- Head CT pending - if no abnormalities can discharge
#COPD - Continue albuterol and Breztri
#CAD s/p stent - Continue aspirin and statin
#Essential hypertension -continues lisinopril
#BPH -continue tamsulosin
Full code
DVT heparin
Anticipated Discharge: Today
Subjective/Interval History
-
Date of Service: June 19, 2025
No complaints overnight. Feeling significantly better. Glad neurology is going to see him.
Objective Data
-
Labs:
Laboratory Results
06/19/25
07:00
WBC 5.2
Hgb 11.0 L
Hct 33.9 L
Plt Count 197
Sodium 136
Potassium 4.1
Chloride 105
Carbon Dioxide 27
BUN 25 H
Creatinine 1.2
Glucose 85
Calcium 8.5
Vital Signs:
Vital Signs
Temp Pulse Resp BP Pulse Ox
97.6 F 77 18 156/84 97
06/19/25 07:15 06/19/25 08:00 06/19/25 08:00 06/19/25 07:15 06/19/25 08:00
I&O
06/18/25 06/19/25 06/20/25
06:59 06:59 06:59
Intake Total 120 / 120 120 / 120
Output Total 850 / 850 200 / 200
Balance -730 / -730 120 / 120 -200 / -200
Review of Systems
-
History Source: Patient
Respiratory: Reports No Symptoms
Cardiac: Reports No Symptoms
Abdomen/GI: Reports No Symptoms
Genitourinary: Reports No Symptoms
Skin: Reports No Symptoms
Neuro: Reports Other (Unsteadiness with walking )
Physical Exam
-
General: No Apparent Distress and Comfortable
HEENT: Normocephalic
Respiratory: Clear to Auscultation
Cardiac: Regular Rhythm and S1/S2
GI: Soft, Nontender, Nondistended and Normal Bowel Sounds
Musculoskeletal: No Cyanosis and No Edema
Skin: Warm and Dry
Neuro: AO x 3 and Other (5 out of 5 strength of bilateral feet, proprioception intact, sensation intact bilaterally. Upon initially walking, patient takes a few small steps and then is able to walk without difficulty. Does not appear to be
shuffling gait, however is a bit atypical.)
Psych: Calm
[2025-06-19 11:24] VITALS: BP 154/83
--- NOTE | 2025-06-19 12:33 | W.DCSUMMARY ---
Documented by User: Cynthia Guardado MD, Resident 06/19/25 14:23
Discharge Summary
Discharge Data
Date of Admission: 06/17/25
Date of Discharge: 06/19/25
-
Pending Results: Yes
Additional Pending Results:
Pleural fluid bacterial culture, fungal culture, acid-fast bacilli culture, cytology
Hemoglobin A1C
Hospital Course
Primary diagnosis:
Dyspnea secondary to influenza A
Possible COPD exacerbation
Possible community-acquired pneumonia
Right-sided pleural effusion
Nonischemic myocardial injury
Microcytic anemia
Ongoing unsteadiness
Secondary diagnosis:
CAD status post stent
Essential hypertension
BPH
Hospital course:
79-year-old male with past medical history of right pleural effusion status post drainage in October 2024, COPD, hypertension, CAD status post stent presented to the ED with shortness of breath with exertion over the last month. In the last 3 days he
developed a dry cough. He was noted to be influenza A positive in the ED and chest x-ray revealed recurrent moderate right pleural effusion, small left pleural effusion and moderate subpleural airspace consolidation of the right lower lobe possibly
atelectasis versus right lower lobe pneumonia. He was started on Tamiflu, given IV steroids and azithromycin for possible COPD exacerbation and covered with ceftriaxone for possible superimposed pneumonia. He was admitted for further workup. IR
saw him and performed a right thoracentesis which drained 1100 cc of clear yellow pleural fluid. Fluid was mildly exudative. Cultures and pathology were sent.
The patient was also complaining of unsteadiness on his feet over the past 3 weeks. Neurology was consulted and they recommended workup for peripheral neuropathy and head CT. B12 was already found to be low, folate within normal limits, TSH within
normal limits and blood glucose within normal limits. Hemoglobin A1c pending. Head CT revealed no acute abnormalities.
Today, patient is remarkably improved and is satting well on room air. He is stable for discharge on Tamiflu 75 twice daily to complete a 5-day course. Given it is unclear if this was a COPD exacerbation exacerbated by the flu, he will also be
discharged on prednisone 40 mg daily to complete a 5-day course and azithromycin 500 mg daily to complete 5-day course. Procalcitonin was negative making infection unlikely, however given pleural fluid was exudative, we will err on the side of
caution and treat for possible superimposed pneumonia with cefdinir 300 mg twice daily to complete a 5-day course. He has also been provided a script for a rolling walker and recommended to follow up with neurology.
Imaging:
Non-contrast head CT 06/19/2025:
FINDINGS:
There is moderate ventricular sulcal prominence consistent with atrophy. Brain parenchyma is normal attenuation. There is no intra- or extra-axial mass, hemorrhage, or fluid collection. There is no midline shift nor mass effect. Visualized
paranasal sinuses are free of mucosal disease.
IMPRESSION:
No acute intracranial abnormality noted.
Moderate atrophy.
Discharge Plan
-
Patient Disposition: Home (Routine Discharge)
Discharge Diagnosis/Procedures: Acute hypoxemic respiratory insufficiency secondary to influenza with possible superimposed pneumonia versus chronic obstructive pulmonary disease exacerbation,
Right-sided pleural effusion status post Thoracentesis on 06/17/2025 yielded 1100 cc of exudative fluid with repeat chest x-ray revealed improvement,
Macrocytic anemia with Vitamin B12 deficiency,
Coronary artery disease status post stent,
Essential hypertension,
Benign prostate hyperplasia
Condition: Fair
Diet: As tolerated
Activity: No restrictions
Driving Restrictions: As prior to admission
Bathing Restrictions: None
Referrals:
Letha Schneider MD [Family Provider, Cardiology]
Additional Discharge Medication Instructions: Please take azithromycin 500 mg daily until 06/21/2025
Please take cefdinir 300 twice daily until 06/21/2025
Please take prednisone 40 mg daily until 06/21/2025
The above medications are to treat possible superimposed pneumonia versus COPD exacerbation on top of the flu.
Please take Tamiflu 75 mg twice daily until 06/21/2025 to treat the flu.
Your B12 was low which could be contributing to your anemia and unsteadiness on your feet. Please continue to take a B12 supplement and follow-up with your primary care doctor. Please follow up with neurology for further evaluation.
Prescriptions:
New
azithromycin 250 mg Tablet
500 mg PO DAILY Qty: 4 0RF
prednisone 20 mg Tablet
40 mg PO DAILY Qty: 4 0RF
cyanocobalamin (vitamin B-12) 500 mcg Tablet
1,000 mcg PO DAILY Qty: 30 0RF
oseltamivir 75 mg Capsule
75 mg PO BID Qty: 5 0RF
cefdinir 300 mg Capsule
300 mg PO Q12 2 Days Qty: 5 0RF
Continued
lisinopril [Zestril] 20 MG tablet
20 mg PO DAILY
aspirin 81 MG tablet,delayed release (DR/EC)
81 mg PO DAILY
PreserVision AREDS 4,296 mcg-226 mg-90 mg Capsule
1 cap PO BID
rosuvastatin 20 mg Tablet
20 mg PO QPM
acetaminophen 500 mg Tablet
500 mg PO Q4HPRN PRN (Reason: mild pain)
tamsulosin 0.4 mg Capsule
0.8 mg PO QPM
calcium carbonate 500 mg calcium (1,250 mg) Tablet,Chewable
500 mg PO DAILY PRN (Reason: indigestion)
Sleep Aid (doxylamine) 25 mg Tablet
25 mg PO HS
albuterol sulfate 90 mcg/actuation Hfa Aerosol Inhaler
1 puff INHALATION DAILY PRN (Reason: shortness of breath)
timolol maleate 0.5 % Drops
1 drp OPHTHALMIC (EYE) Q12H
cholecalciferol (vitamin D3) [Vitamin D3] 50 mcg (2,000 unit) Tablet
50 mcg PO DAILY
Breztri Aerosphere 160-9-4.8 mcg/actuation Hfa Aerosol Inhaler
2 inh INHALATION BID
Discharge Orders:
Discharge Patient (As Directed); Ordered 06/19/25
Ordered By: Cynthia Guardado
Discharge Date and Time
Print Language: BOTSWANAN

Documented by User: Lupe Larose MD 06/19/25 14:35
Discharge Summary
Discharge Data
Date of Admission: 06/17/25
Date of Discharge: 06/19/25
Hospital Course
Primary diagnosis:
Dyspnea secondary to influenza A
Possible COPD exacerbation
Possible community-acquired pneumonia
Right-sided pleural effusion
Nonischemic myocardial injury
Microcytic anemia
Ongoing unsteadiness
Secondary diagnosis:
CAD status post stent
Essential hypertension
BPH
Hospital course:
79-year-old male with past medical history of right pleural effusion status post drainage in October 2024, COPD, hypertension, CAD status post stent; presented to the ED with shortness of breath with exertion.
He was noted to be influenza A positive in the ED and chest x-ray revealed recurrent moderate right pleural effusion, small left pleural effusion and moderate subpleural airspace consolidation of the right lower lobe possibly atelectasis versus
right lower lobe pneumonia. He was started on Tamiflu, given IV steroids and azithromycin for possible COPD exacerbation and covered with ceftriaxone for possible superimposed pneumonia.
He underwent right thoracentesis which drained 1100 cc of clear yellow pleural fluid. Fluid was mildly exudative. Cultures and pathology were sent, results were not back at the time of discharge.
The patient was also complaining of unsteadiness on his feet over the past 3 weeks. Neurology was consulted and they recommended workup for peripheral neuropathy and head CT. B12 was already found to be low, folate within normal limits, TSH within
normal limits and blood glucose within normal limits. Hemoglobin A1c also WNL at 5.2%. His Head CT revealed no acute abnormalities. He can follow-up with neurology outpatient.
With marked clinical improvement and good saturation on room air, he was deemed stable for discharge.
He was discharged with Tamiflu 75 twice daily to complete a 5-day course. Given it was unclear if there was COPD exacerbation, he was also discharged on prednisone 40 mg daily to complete a 5-day course, as well as azithromycin 500 mg daily to
complete 5-day course. Procalcitonin was negative making infection unlikely, however given pleural fluid was exudative, we err on the side of caution and treated his for possible superimposed pneumonia with cefdinir 300 mg twice daily to complete a
5-day course. He has also been provided a script for a rolling walker.
Imaging:
Non-contrast head CT 06/19/2025:
FINDINGS:
There is moderate ventricular sulcal prominence consistent with atrophy. Brain parenchyma is normal attenuation. There is no intra- or extra-axial mass, hemorrhage, or fluid collection. There is no midline shift nor mass effect. Visualized
paranasal sinuses are free of mucosal disease.
[2025-06-19 12:52] LABS: Glycohemoglobin (HgbA1c) 5.2 % (4.0-5.9)
--- NOTE | 2025-06-19 13:11 | W.PN.PUL3 ---
Today's Communication / Plan
-
Tamiflu with isolation
Prednisone with taper as he clinically improves
Empiric antibiotics given opacification in right lower lobe on CXR
DuoNebs
Symbicort + Spiriva � resume Breztri upon discharge
Patient being prepared for discharge. Pulmonary service will now sign off. Please call back with any questions or concerns.
Assessment
-
77-year-old former smoking male with a history of right pleural effusion, status post drainage October 2024, COPD, legionnaire pneumonia, hypertension, CAD/stent, presented with increasing shortness of breath and dry cough-pulmonary consulted for
shortness of breath 06/17/25.
Recurrent right pleural effusion.
Recent thoracentesis 12/2024
Thoracentesis 06/17/25
Pneumonia
Influenza A- had vaccine this year
Mild CHF--preserved EF
Wvwvnb-Rktbuxtfyj-zsrgqvgbdo 11.8
Leukopenia - resolved
Conditions present prior to admission:
COPD. .
Pulmonary nodule-9.3 mm left upper lobe-PET 12/2024-SUV 1.4-delayed 1.6
History of asbestos exposure
Former smoker.
Right pleural effusion/thoracentesis October 2024-suspected parapneumonic, cytology, negative
Legionnaire pneumonia 2007.
Hypertensi 1.4-delayed 1.69
BPH
Plan
Progressive respiratory decompensation, likely related to fluid reaccumulation, right greater than left pleural fluid.
- He is now feeling much better after thoracentesis on 06/17, which removed 1100 cc of clear yellow exudative (LDH + total protein) fluid
- Follow-up pleural fluid cultures (shows NGTD)
Supplement oxygen as needed.
Inhalers-patient maintained on Breztri or Trelegy 100 - currently on Symbicort 160 mcg + Spiriva Respimat; resume Breztri upon discharge
DuoNeb BID with prn nebulizers (not currently bronchospastic)
Continue with empiric antibiotics with cefdinir + Zithromax - plan for 5-7 days
Prednisone with taper as he clinically improves
Aspiration precautions.
Incentive spirometry.
Influenza A pos
Isolation
Tamiflu
Follow radiographically.
Trend WBC
Monitor hemoglobin.
Transfuse if needed to keep Hb>7
Recent Echo at [facility] reportedly looked 'good' - asked to get results
Asking for neuro eval - 'unsteady on feet'
- CT head today showed no acute intracranial pathology
- Recommend outpatient neuro follow up
DVT prophylaxis.
Nutrition
Early mobilization
Patient last saw Dr. Engle 01/05/25 and canceled 06/17/25 as he was in the hospital; he will need outpatient follow-up s/p discharge
Patient being prepared for discharge. Pulmonary service will now sign off. Please call back with any questions or concerns.
Studies:
Chest x-ray 06/17/25-moderate right and small left pleural effusion, moderate subpleural airspace consolidation right lower lobe, mild interstitial alveolar coverage extremity edema
CT chest 09/14/2024: Reviewed from CD-performed at [facility], Kana Garcia 10/07/2024 10:30:24 AM EDT >demonstratedmoderate centrilobular emphysema, upper lobe predominant.right lower lobe consolidation, with associated mild to
moderate pleural effusion. Mild left lower lobe bronchiolitis.Left upper lobe 7-8mm jay jay-fissural spiculated note. official report states that it is a slightly increased from 2023 from 6 mm.there is no mediastinal lymph nodes present and there is no
pericardial effusion..
PET/CT 12/29/2024, reviewed Kana Garcia 01/05/2025 12:25:28 PM EDT >1. 9.3 mm solid pulmonary nodule in the posterior apical segment of the left upper lobedemonstrating mild FDG uptake. Diagnostic possibilities are (1) a small infectious or
inflammatorynodule or (2) low-grade lung cancer.2. Mild bilateral upper lobe emphysema.3. Small right and minimal left pleural effusions.4. Mild amount of subpleural airspace opacity in the basilar right lower lobe (probably residualpneumonia or
inflammatory disease).5. Chronic urinary bladder outlet obstruction with severe urinary bladder wall thickening andmultiple large urinary bladder diverticula.
Pulmonary function testing ( 05/06/2024� ):FEV1: 1.71 L- 55%FVC:4.27 L at 99%FEV1/FVC ratio:40%T.84 L-92%RV:2.64 L-91%ERV:RV/TLC ratio:39%DLCO: 10.93-41%DLCO/VA: 56%
Echocardiogram 03/30/09-EF 55%, mild mitral regurgitation.
Cardiac catheterization 03/22/24-total occlusion mid RCA, successful PCI, mildly elevated filling pressures
Total time spent today was 28 minutes for this encounter. Time includes reviewing laboratory test/imaging results, reviewing pertinent medical records, obtaining and reviewing medical history, performing an appropriate exam, ordering medications,
tests and procedures. Time also includes documentation of this encounter, coordinating patient care and communicating with other healthcare professionals. Total time does not include separately billed tests performed on this date of service.
Subjective Data
-
Date of Service:
Date of Service: June 19, 2025
Chief Complaint: Pulmonary Follow Up
Subjective:
Pt seen and evaluated this AM. Being prepared for DC home today. No acute events reported from overnight. No SOB.
Review of Systems
General: Other (Negative unless mentioned above)
Objective Data
Data Reviewed
Vital Signs / I&O / Oxygen:
Vital Signs
Temp Pulse Resp BP Pulse Ox
97 F 74 18 154/83 93
06/19/25 11:24 06/19/25 12:19 06/19/25 12:19 06/19/25 11:24 06/19/25 12:19
Intake and Output
06/18/25 06/19/25 06/20/25
06:59 06:59 06:59
Intake Total 120 / 120 120 / 120
Output Total 850 / 850 200 / 200
Balance -730 / -730 120 / 120 -200 / -200
SaO2 93
Nasal Cannula flow liters per 2
minute
Physical Exam
General: Respiratory Distress (negative), Comfortable, Chills (negative) and Sweats (negative)
HEENT: Normocephalic and Anicteric
Cardiovascular: S1-S2 and Peripheral Edema (negative)
Respiratory: Wheeze (negative), Crackles (Bibasilar (improved)), Rhonchi (negative) and Non-Labored Respirations
GI: Soft, Non Distended, Non Tender and Normal Bowel Sounds
Neurology: AO x 3 and Tremors (negative)
Skin: Warm, Dry, Cyanosis (negative) and Jaundice (negative)
Labs/Micro/Reports
Lab Data
06/19/25 07:00
06/19/25 07:00
Microbiology
06/17/25 15:11 Pleural Fluid Body Fluid Culture - Preliminary
No Growth After 48 Hours
06/17/25 15:11 Pleural Fluid Gram Stain - Preliminary
06/18/25 06:29 Urine Legionella Urinary Antigen - Final
Negative for Legionella pneumophila Serogroup 1 antigen.
A negative result does not rule out the possiblity of
Legionella infection due to other serogroups or species of
Legionella. Clinical correlation is recommended.
06/18/25 06:29 Urine Streptococcus pneumoniae Antigen (M - Final
Negative for Streptococcus pneumoniae antigen.
A negative result does not exclude infection with
Streptococcus pneumoniae. Clinical correlation is
recommended.
06/17/25 15:11 Pleural Fluid Fungal Culture - Preliminary
Culture in progress.
Positive cultures are reported as soon as detected.
Final report to follow in four to five weeks.
06/17/25 13:37 Nasal Swab Influenza Types A & B (REUBEN) - Final
Influenza A Positive, NAAT
--- NOTE | 2025-06-19 13:28 | W.PN.UPDATE ---
Update Note
Progress Note Update
Discussed case with resident.
HPI: 79-year-old male with past medical history of right pleural effusion status post drainage in October 2024, COPD, hypertension, CAD status post stent; presented with shortness of breath with exertion over the last month and a dry cough for about 3
days.
He was noted to be influenza A positive in the ED and chest x-ray revealed recurrent moderate right pleural effusion, small left pleural effusion and moderate subpleural airspace consolidation of the right lower lobe possibly atelectasis versus
right lower lobe pneumonia.
He was started on Tamiflu, given IV steroids and azithromycin for possible COPD exacerbation and covered with ceftriaxone for possible superimposed pneumonia.
He was also given 40 mg of IV Lasix for concerns of CHF exacerbation.
IR saw him and performed a right thoracentesis which drained 1100 cc of clear yellow pleural fluid. Fluid was mildly exudative. Cultures and pathology were sent.
Imaging:
Chest x-ray 06/17/2025:
1. Moderate-sized right and small left pleural effusions which appear to have increased in size.
2. Moderate subpleural airspace consolidation in the right lower lobe. Diagnostic possibilities are (1) compressive atelectasis or (2) right lower lobe pneumonia (if there are signs/symptoms of pulmonary infection).
3. Mild interstitial and alveolar cardiogenic pulmonary edema.
4. Mild cardiomegaly.
A/P:
# Dyspnea secondary to influenza A
# possible COPD exacerbation
# Possible community-acquired pneumonia
# Right-sided pleural effusion
Cont Tamiflu, total 5 days
Chest x-ray per above
Cardiac BNP 3500 - we do not have records but per patient he did have a recent echo which was 'normal'
He received 40 mg IV Lasix in the ED
s/p Thoracentesis on admission 06/17/2025, yielded 1100 cc clear yellow pleural fluid. Fluid analysis showed exudative pleural effusion- repeat chest x-ray revealed improvement
s/p IV steroid -> PO prednisone 40 mg
Procalcitonin negative at 0.05 making underlying pneumonia highly unlikely however given fluid is exudative, will err on the side of caution and treat with 5-day course of antibiotics as he already started antibiotics.
Empiric antibiotics Ceftriaxone and azithromycin -> can change to p.o. cefdinir and oral azithromycin to complete total 5 days course
# BL LE weakness, ongoing unsteadiness, likely related to current active flu infection
Appreciate neuro input
Follow CT head
B12 low, started repletion
TSH WNL at 0.53,
A1C WNL at 5.2%
PT cleared for outpt therapy
# Nonischemic myocardial injury
Troponin 0.03 on admission -> 0.017
Patient denies any chest pain, EKG nonischemic
# Macrocytic anemia
B12 at 246- started PO vitamin B12 supplement.
Iron studies reveal anemia of chronic disease
# CAD s/p stent - Continue aspirin and statin
# Essential hypertension - continues lisinopril
# BPH - continue tamsulosin
--- NOTE | 2025-06-19 15:07 | CM ---
CM reviewed chart, patient seen bedside.
Script for RW provided to PT, walker given to patient upon d/c.
Patient declining need for home therapy.
IMM verbally reviewed, provided with copy, placed in chart.
Patient confirms transport home.
CM will continue to follow for all d/c needs.
Plan; home with RW provided by PT
[2025-06-19] MEDS: STERILE WATER FOR INJECTION IV (15:11)
[2025-06-19 15:30] VITALS: BP 153/86
== END 2025-06-19 15:50 | disposition home or self-care (01) | DRG 194 ==
LOC: 4 WEST ACU 13:33
PROVIDERS: Radiology Diagnostic Radiology; ADMITTING PHYSICIAN Hospitalist; ATTENDING PHYSICIAN Internal Medicine; CONSULT PHYSICIAN Internal Medicine Critical Care Medicine; CONSULT PHYSICIAN Student in an Organized Health Care Education/Training Program; EMERGENCY PHYSICIAN Emergency Medicine; FAMILY PHYSICIAN Internal Medicine Cardiovascular Disease
PROC: 0W993ZZ Drainage of Right Pleural Cavity, Percutaneous Approach (ICD-10-PCS; 2025-06-17)
DX: J10.1 Influenza due to other identified influenza virus with other respiratory manifestations (principal); I5A Non-ischemic myocardial injury (non-traumatic); J10.00 Influenza due to other identified influenza virus with unspecified type of pneumonia; D50.9 Iron deficiency anemia, unspecified; I25.10 Atherosclerotic heart disease of native coronary artery without angina pectoris; Z95.5 Presence of coronary angioplasty implant and graft; I11.0 Hypertensive heart disease with heart failure; N40.0 Benign prostatic hyperplasia without lower urinary tract symptoms; Z87.891 Personal history of nicotine dependence; Z79.82 Long term (current) use of aspirin; Z79.899 Other long term (current) drug therapy; Z77.090 Contact with and (suspected) exposure to asbestos; D51.9 Vitamin B12 deficiency anemia, unspecified; D53.9 Nutritional anemia, unspecified; D72.819 Decreased white blood cell count, unspecified; J43.9 Emphysema, unspecified; R09.02 Hypoxemia; Z11.52 Encounter for screening for COVID-19
CPT/HCPCS: 32555; 70450; 71045; 71046; 80048; 80053; 82150; 82607; 82728; 82746; 82945; 83036; 83540; 83550; 83615; 83880; 83986; 84145; 84155; 84157; 84443; 84478; 84484; 85025; 85027; 87015; 87070; 87102; 87116; 87205; 87206; 87449; 87502; 87811; 87899; 88112; 88305; 89051; 93005; 94640; 94667; 96374; 97162; 97530; 99285